=== PATIENT | male | born 1950 | race Caucasian/White ===

== ENCOUNTER → 2025-05-10 09:18 | Outpatient (REF) | payer MEDICARE, OTHER, SELFPAY | LOC: RAD 09:18 | PROVIDERS: ATTENDING PHYSICIAN Thoracic Surgery (Cardiothoracic Vascular Surgery); FAMILY PHYSICIAN Family Medicine | DX: I35.0 Nonrheumatic aortic (valve) stenosis (principal) | CPT/HCPCS: 74174; 75572; Q9967 ==

== ENCOUNTER 2025-05-17 07:30 | Day surgery (SDC) | payer MEDICARE, OTHER, SELFPAY ==
[2025-05-17] VITALS (16 sets, daily range): BP systolic 111–171; BP diastolic 58–84; BMI 34.7
[2025-05-17] MEDS: NSS 310 ML IV (08:26)
--- NOTE | 2025-05-17 13:18 | ITS.CL.CATH ---
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
Cardiac Catheterization
Procedure Report:
LEFT HEART CATHETERIZATION
Date of Procedure: May 17, 2025
Referring: Dr. Nicholas Townsend
PROCEDURES:
1. Left heart catheterization, coronary angiogram.
2. Moderate sedation.
3. Functional physiologic testing with IFR of mid LAD.
INDICATION: Severe symptomatic aortic stenosis, being worked up for TAVR versus SAVR
ACCESS: Right radial artery, 6Fr. sheath, under US guidance.
HEMODYNAMICS : (mmHg)
AO (s/d) : 151/78
LVEDP : 26
Severe aortic stenosis with mean invasive gradient of 75 mmHg.
CORONARY FINDINGS
Dominance: Right
Left Main Trunk (LMT): Medium caliber vessel which gives rise to a medium caliber LAD and a small caliber left circumflex. There is minimal luminal irregularities.
Left Anterior Descending Artery (LAD): Large caliber vessel that gives off 2 major diagonal branches as it courses along the anterior inter-ventricular groove before wrapping around the cardiac apex. Mid LAD at the level of the takeoff of a medium
to large caliber second diagonal branch, there is an eccentric calcified 60% stenosis which is IFR positive at 0.88.
Left Circumflex Artery (LCx): Small caliber vessel that gives off 1 major obtuse marginal (OM) branches as it courses along the atrio-ventricular (AV) groove. There is mild diffuse atherosclerotic plaque.
Right Coronary Artery (RCA): Large caliber dominant vessel that gives rise to the posterior descending artery (RPDA) and postero-lateral ventricular (RPLV) branches distally. There is mild diffuse atherosclerotic plaque.
HEMODYNAMIC ASSESSMENT OF THE MID LAD WITH A [place] OMNI WIRE: The origin of the left coronary artery was cannulated with a 6 [place] EBU 3.5 guide catheter. Intravenous heparin was administered and the ACT was followed during the procedure. Two
hundred micrograms of intracoronary nitroglycerin was given through the guide catheter. A [place] Omni wire was advanced to the guide catheter tip and normalized just outside the guide catheter. The Omni wire was then carefully manipulated across
the stenosis in the mid LAD with the iFR below the ischemic threshold measuring 0.88. The Omni wire was then pulled back to the guide catheter where the Pd/Pa measured 1.0 confirming no baseline drift in pressure readings.
SEDATION: 42 minutes of procedural sedation was utilized. IV Midazolam and IV Fentanyl were administered. An independent medical support assistant was present to assist with and help manage the patient's level of consciousness and physiologic status.
RADIATION SUMMARY: Fluoro Time (min): 8.5, Dose (mGy): 649.3, DAP (Gy.cm2) : 42.37
Closure Device: There were no immediate intra-procedural complications. The sheath was pulled in the photonic laboratory technician and a vascular-band applied to the right wrist for radial artery hemostasis using the patent hemostasis technique.
CONCLUSIONS
1. Mid LAD at the level of the takeoff of a medium to large caliber second diagonal branch, there is an eccentric calcified 60% stenosis which is IFR positive at 0.88.
2. LVEDP of 26 mmHg.
3. Severe aortic stenosis with mean invasive gradient of 75 mmHg.
RECOMMENDATIONS
1. Wean radial band per protocol. Monitor right hand perfusion and for bleeding from the radial site following removal of the vascular-band following trans-radial access.
2. Continue aggressive medical therapy and risk factor modification for secondary CAD prevention.
3. Hydrate with normal saline to mitigate the risk of contrast-induced acute kidney injury.
4. Discussed at structural heart meeting regarding TAVR plus PCI versus SAVR plus CABG versus AVR alone and medical therapy for now for CAD.
Brenda Hansen MD, [facility], [facility]
Copy to: Dr. Nicholas Townsend
== END 2025-05-17 15:25 | disposition home or self-care (01) ==
LOC: CATH 07:30
PROVIDERS: ATTENDING PHYSICIAN Internal Medicine Interventional Cardiology; FAMILY PHYSICIAN Family Medicine; OTHER PHYSICIAN Internal Medicine Cardiovascular Disease
DX: I35.0 Nonrheumatic aortic (valve) stenosis (principal); I25.10 Atherosclerotic heart disease of native coronary artery without angina pectoris; I10 Essential (primary) hypertension; E78.2 Mixed hyperlipidemia
CPT/HCPCS: 99152; 99153; 93799; 85347; 93458; C1769; C1894; Q9967

== ENCOUNTER 2025-06-12 04:59 | Inpatient (IN) | payer MEDICARE, OTHER, SELFPAY ==
[2025-06-03 08:08] VITALS: BMI 34.2
[2025-06-03 09:12] LABS: Hematocrit 43.8 % (39.0-52.0); Hemoglobin 14.8 g/dL (13.0-18.0); Mean Corp Hgb Conc. 33.8 g/dL (33.0-37.0); Mean Corpuscular Volume 98.0 fL (80.0-94.0); Nucleated Red Blood Cells % 0 % (-); Platelet Count 177 10^3/uL (130-400); Red Cell Dist. Width 12.2 % (11.5-14.5)
[2025-06-03 09:17] LABS: INR 1.02; PT 13.7 Sec (11.4-14.6)
[2025-06-03 09:25] LABS: ALT (SGPT) 45 U/L (0-50); AST (SGOT) 31 U/L (17-59); Albumin 4.1 g/dl (3.5-5.0); Alkaline Phosphatase 65 U/L (38-126); Blood Urea Nitrogen 18 mg/dl (9-20); Calcium 9.4 mg/dl (8.4-10.2); Carbon Dioxide 29 mmol/L (22-30); Chloride 104 mmol/L (98-107); Estimated Creatinine Clearance 95 ml/min; Glucose 83 mg/dl (70-99); Potassium 4.5 mmol/L (3.5-5.1); Sodium 139 mmol/L (135-145); Total Protein 6.8 g/dl (6.3-8.2); eGFR > 60.00
[2025-06-03 09:39] LABS: Urine Character Clear (Clear)
--- NOTE | 2025-06-03 10:45 | CM ---
Spoke with patient and in PATs. We discussed pre-op AVR teaching including sternal and driving restrictions. Previously independent at baseline, lives with in 1 story home with 2 steps to enter, denies DMEs. He has the CT surgery education
book, soap, and instructions. He is agreeable to a follow up visit from the CT transitional care nurses following DC. CM role explained and all questions answered. Plan for AVR 06/12/25.
[2025-06-03 11:37] LABS: Glycohemoglobin (HgbA1c) 4.7 % (4.0-5.9)
[2025-06-12] VITALS (34 sets, daily range): BP systolic 80–151; BP diastolic 46–123; BMI 34.0
[2025-06-12] MEDS: PROTONIX 40 MG PO (05:35)
[2025-06-12] MEDS: MAGNESIUM OXIDE 400 MG PO (05:35)
[2025-06-12] MEDS: BACTROBAN 2% OINTMENT 1 APPLIC NASAL ×2 (05:36→20:54)
[2025-06-12] MEDS: LOPRESSOR 25 MG PO (05:36)
--- NOTE | 2025-06-12 05:55 | PTCARENOTE ---
Patient admitted to CVICU. Patient confirmed 2 CHG showers and home medication list. Patient washed w/ CHG cloths and clipped. Admission questions asked. Medications administered. Labs drawn. Awaiting CVOR.
[2025-06-12 06:16] LABS: Hematocrit 40.3 % (39.0-52.0); Hemoglobin 13.2 g/dL (13.0-18.0); Mean Corp Hgb Conc. 32.8 g/dL (33.0-37.0); Mean Corpuscular Volume 100.5 fL (80.0-94.0); Platelet Count 158 10^3/uL (130-400); Red Cell Dist. Width 12.4 % (11.5-14.5)
--- NOTE | 2025-06-12 06:20 | W.CVOR.SURPR ---
CVOR Surgeon Immed Pre Op
-
I have examined this patient prior to performance of the scheduled procedure.
The patient's condition is unchanged from the time of the dictated/written History and
Physical and the patient is able to undergo the scheduled procedure.
AVR, we collectively discussed his CAD and consensus is to leave that mid lesion alone (he also denies any anginal symptoms)
[2025-06-12 07:53] LABS: ACT+ - POC 115 Seconds (82-134)
[2025-06-12 08:17] LABS: Urine Character Clear (Clear)
--- NOTE | 2025-06-12 08:17 | CM ---
Reviewed chart. Mr Goins is in the operating room today. Prior to admission he resides with his spouse in a one story home with two steps to enter. Prior to admission he was independent with ambulation and adls. He does not have any DME. He has a
prescription plan. Medical work-up in progress. The discharge plan is to return home with his spouse and a home visit by the Transitional Care Nurse when medically stable.
[2025-06-12 08:33] LABS: Urine Squamous Cell 0-2 /LPF (Few); Urine White Cell 0-2 /HPF (0-5)
[2025-06-12 08:34] LABS: Urine Red Blood Cell 0-2 /HPF (0-2)
[2025-06-12 08:51] LABS: ACT+ - POC 528 Seconds (82-134)
[2025-06-12 09:14] LABS: B.E. - POC -2.7 mmol/L; Glucose - POC 93 mg/dl (70-99); HCO3 - POC 24 mmol/L (21-28); Hematocrit - POC 31 % PCV (42-52); Hemodilution- POC No; Hemoglobin Calculated - POC 10.6; Ionized Calcium - POC 1.18 mmol/L (1.15-1.33); Lactate - POC 0.41 mmol/L (0.36-0.75); O2 Saturation %Calculated-POC 98.7 % (94-98); PCO2 - POC 46 mmHg (35-48); PO2 - POC 130 mmHg (83-108); Potassium - POC 3.6 mmol/L (3.5-5.1); Sodium - POC 139 mmol/L (136-145); Specimen Type - POC Arterial; pH - POC 7.32 (7.35-7.45)
[2025-06-12 09:26] LABS: ACT+ - POC 641 Seconds (82-134)
[2025-06-12 09:47] LABS: B.E. - POC -0.3 mmol/L; Glucose - POC 111 mg/dl (70-99); HCO3 - POC 25 mmol/L (21-28); Hematocrit - POC 32 % PCV (42-52); Hemodilution- POC Yes; Hemoglobin Calculated - POC 10.8; Ionized Calcium - POC 1.06 mmol/L (1.15-1.33); Lactate - POC 0.42 mmol/L (0.36-0.75); O2 Saturation %Calculated-POC 99.9 % (94-98); PCO2 - POC 43 mmHg (35-48); PO2 - POC 321 mmHg (83-108); Potassium - POC 5.1 mmol/L (3.5-5.1); Sodium - POC 141 mmol/L (136-145); Specimen Type - POC Arterial; pH - POC 7.38 (7.35-7.45)
[2025-06-12 09:57] LABS: ACT+ - POC 530 Seconds (82-134)
[2025-06-12 10:30] LABS: B.E. - POC 0.9 mmol/L; Glucose - POC 154 mg/dl (70-99); HCO3 - POC 26 mmol/L (21-28); Hematocrit - POC 33 % PCV (42-52); Hemodilution- POC Yes; Hemoglobin Calculated - POC 11.1; Ionized Calcium - POC 1.16 mmol/L (1.15-1.33); Lactate - POC 0.68 mmol/L (0.36-0.75); O2 Saturation %Calculated-POC 99.8 % (94-98); PCO2 - POC 45 mmHg (35-48); PO2 - POC 231 mmHg (83-108); Potassium - POC 4.5 mmol/L (3.5-5.1); Sodium - POC 142 mmol/L (136-145); Specimen Type - POC Arterial; pH - POC 7.38 (7.35-7.45)
[2025-06-12 10:32] LABS: ACT+ - POC 123 Seconds (82-134)
--- NOTE | 2025-06-12 11:02 | CON.INTV ---
Consultation
Consultation Request
Date/Time Consultation Requested: 06/12/2025 - 1035
Date/Time Consultation Performed: 06/12/2025 - 1054
Requesting Provider: Yoanna Tejada PA-C
Performing Provider: Dr. Delgado
Reason for Consultation: SAVR
Medical History
-
Chief Complaint: Elective SAVR
History of Present Illness:
74-year-old male with a past medical history of nonrheumatic aortic valve stenosis who presents for elective surgical aortic valve replacement. Patient known to the CT surgery service with last visit on 05/27/[address] Howe. He has known mid
LAD disease with an IFR of 0.88. Multidisciplinary team discussion held and there was discussion between TAVR versus SAVR. He does have significant calcium burden that infiltrates up into the measures and into the valve annulus which places him at
slightly higher risk for complications including aortic rupture and hemorrhage. Discussion held and due to this calcium distribution, surgery would actually be more controlled and safer compared to TAVR. Patient agreed to this procedure, and today
underwent hemisternotomy with surgical aortic valve replacement with a 27 mm biological valve. There were no complications and he was transferred to the CVICU postoperatively for further care, with Lan Support Specialist service consulted for additional
management/recommendations.
When I saw the patient he was in bed, intubated on SIMV at 16/550/40%/5, with PIP 21 cmH2O, breathing at 16 breaths/min and VTe 415 cc. Currently on Levophed at 3 mcg/min and insulin drip at 1.3 units/hr. Heart rate 68, BP via A-line 93/50, PAP
25/12, CO/CI: 4.8/2.23, respectively, BP via NIBP: 112/75 and saturating 98%. He has a mediastinal chest tube x 1.
PMHx: Severe aortic stenosis, BPH, hypercholesterolemia, hypertension, CAD (mid-LAD)
PSHx: Non-contributory
Past Medical History
Past Medical History: Other (Above as per HPI)
Past Surgical History: Other (Above as per HPI)
Social History
Tobacco: Non-smoker
Alcohol: Occasional
Drug: None
Personal:
Living: With Family
Family History
Family History: CAD (Father + maternal grandmother), Cancer (Sibling (unknown type)), Hypertension (Father and mother) and Other (Father: CHF + aortic aneurysm; mother: History of syncope + hypercholesterolemia)
Allergies / Home Medications
Allergies
Allergy/AdvReac Type Severity Reaction Status Date / Time
No Known Allergies Allergy Verified 05/30/25 15:28
Home Medications
�Medication �Instructions �Recorded �Confirmed �Last Taken �Type
ascorbic acid (vitamin C) 1,000 mg 1,000 mg PO DAILY Supplement 05/17/25 06/12/25 06/04/25 08:00 History
tablet (Vitamin C)
aspirin 81 mg chewable tablet 81 mg PO DAILY Blood Clot 05/17/25 06/12/25 06/11/25 08:00 History
Prevention/Tx
cholecalciferol (vitamin D3) 25 25 mcg PO DAILY Supplement 05/17/25 06/12/25 06/05/25 08:00 History
mcg (1,000 unit) tablet (Vitamin
D3)
clobetasol 0.05 % topical gel 1 applic topical MOWEFR 05/17/25 06/12/25 06/11/25 08:00 History
Tounge,cheek
clotrimazole 10 mg bernard 10 mg mucous membrane MOWEFR 05/17/25 06/12/25 06/11/25 08:00 History
Infection
cyanocobalamin (vitamin B-12) 1,000 mcg PO DAILY Supplement 05/17/25 06/12/25 06/04/25 08:00 History
1,000 mcg tablet (Vitamin B-12)
echinacea 400 mg capsule 400 mg PO HS Supplement 05/17/25 06/12/25 06/04/25 08:00 History
tamsulosin 0.4 mg capsule 0.4 mg PO DAILY BPH 05/17/25 06/12/25 06/11/25 08:00 History
amlodipine 5 mg tablet 5 mg PO HS Blood Pressure 05/31/25 06/12/25 06/09/25 20:00 History
multivitamin 1 tab PO DAILY Supplement 05/31/25 06/12/25 06/05/25 08:00 History
omega 9-pmd-zsi-fish oil 1,200 mg 1 cap PO BID High Cholesterol 05/31/25 06/12/25 06/04/25 08:00 History
(144 mg-216 mg) capsule (Fish Oil)
turmeric 500 mg PO HS Supplement 05/31/25 06/12/25 06/04/25 08:00 History
zinc acetate 50 mg (zinc) capsule 50 mg PO HS Supplement 05/31/25 06/12/25 06/04/25 08:00 History
atorvastatin 40 mg tablet 40 mg PO QPM High Cholesterol 06/12/25 06/12/25 06/11/25 19:00 History
Review of Systems
-
Unable to Obtain full review of systems at this time due to: Patient Intubation
Vitals / Labs / Diagnostic Testing
Vital Signs
Temp Pulse Resp BP Pulse Ox
96.4 F L 79 13 144/76 96
06/12/25 11:15 06/12/25 11:30 06/12/25 11:25 06/12/25 05:36 06/12/25 11:30
Diagnostic Testing:
Physical Exam
-
HEENT: Normocephalic, Anicteric and Other (ETT in place)
Cardiovascular: S1/S2 and Peripheral Edema (negative)
Respiratory: Wheeze (negative), Rhonchi (negative), Non-Labored Respirations, Other (Mechanical breath sounds heard bilaterally) and Other (Mediastinal chest tube x 1)
GI: Soft, Distended (Abdominal obesity), Non Tender and Normal Bowel Sounds
Neurology: Tremors (negative) and Other (Sedated)
Skin: Warm and Dry
General: Respiratory Distress (negative), Comfortable, Fever (negative) and Chills (negative)
Assessment
-
Assessment: 74-year-old male with a past medical history of nonrheumatic aortic valve stenosis who presents for elective surgical aortic valve replacement. Patient known to the CT surgery service with last visit on 05/27/[address] Howe. He
has known mid LAD disease with an IFR of 0.88. Multidisciplinary team discussion held and there was discussion between TAVR versus SAVR. He does have significant calcium burden that infiltrates up into the measures and into the valve annulus which
places him at slightly higher risk for complications including aortic rupture and hemorrhage. Discussion held and due to this calcium distribution, surgery would actually be more controlled and safer compared to TAVR. Patient agreed to this
procedure, and on 06/12/2025 he underwent hemisternotomy with surgical aortic valve replacement with a 27 mm biological valve. There were no complications and he was transferred to the CVICU postoperatively for further care, with Lan Support Specialist
service consulted for additional management/recommendations.
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
Impression:
#Aortic valve stenosis with heavy calcification s/p hemisternotomy and surgical aortic valve replacement with 27 mm biological valve (POD #0)
#CAD involving mid LAD with an eccentric calcified 60% stenotic lesion which is IFR positive at 0.88 per [facility] on 05/17/2025)
#Hypertension
#Hyperlipidemia
#BPH
#Obesity (BMI: 34)
#Single-vessel CAD
Plan:
Ventilator settings reviewed
FiO2 will be weaned to maintain SpO2 >90-94%
Minute ventilation will be adjusted
Arterial blood gases will be monitored
Spontaneous breathing trial will be attempted with hopeful extubation after anesthesia/sedation wear off
prn nebulized bronchodilators - not currently bronchospastic
Pulmonary artery catheter parameters will be followed
Pressors/antihypertensive/inotropes/diuretics will be provided as needed
Maintain MAP>65
Replete electrolytes with K>4, Mg>2
Monitor chest tube output
Monitor hemoglobin
Monitor platelet count and coags
Transfuse blood products as needed to maintain Hb>7g/dL, plt>50k (given post-operative status)
CT surgery managing chest tubes
Monitor blood sugar to maintain euglycemia with goal BG 110-140
Insulin drip per protocol
Aspiration precautions
VAP prevention protocol
DVT prophylaxis
Early nutrition
Early mobilization
Critical care statement: A total of 46 minutes of critical care time was provided for this patient today. This includes management of ventilator, spontaneous breathing trial, arterial blood gases, pressors, of unstable vital signs, evaluation of the
patient at bedside, reviewing the patient's pertinent medical records including radiographs, microbiology, laboratory evaluations, and discussion with primary team and critical care nursing.
Data:
Intraoperative INGRID 06/12/2025:
Overall LVEF is approximately 55% with no RWMA.
Severe concentric left ventricular hypertrophy.
Stage II Diastolic dysfunction.
Mildly dilated left atrium.
Mild tricuspid regurgitation.
Severe aortic stenosis.
Mild aortic insufficiency.
KEENA calculates to 0.8 cm2 by continuity equation.
Moderate posterior MV annular calcification.
Mid ascending aorta is mildly dilated measuring 3.6 cm at the level of the RPA.
Mild sessile atheroma seen in the descending aorta and distal arch.
Left heart catheterization 05/17/2025:
1. Mid LAD at the level of the takeoff of a medium to large caliber second diagonal branch, there is an eccentric calcified 60% stenosis which is IFR positive at 0.88.
2. LVEDP of 26 mmHg.
3. Severe aortic stenosis with mean invasive gradient of 75 mmHg.
[2025-06-12 11:07] LABS: B.E. - POC -1.1 mmol/L; Glucose - POC 180 mg/dl (70-99); HCO3 - POC 24 mmol/L (21-28); Hematocrit - POC 32 % PCV (42-52); Hemodilution- POC Yes; Hemoglobin Calculated - POC 11.0; Ionized Calcium - POC 1.35 mmol/L (1.15-1.33); Lactate - POC 1.08 mmol/L (0.36-0.75); O2 Saturation %Calculated-POC 93.2 % (94-98); PCO2 - POC 40 mmHg (35-48); PO2 - POC 69 mmHg (83-108); Potassium - POC 4.1 mmol/L (3.5-5.1); Sodium - POC 138 mmol/L (136-145); Specimen Type - POC Arterial; pH - POC 7.39 (7.35-7.45)
[2025-06-12 11:25] LABS: Glucose - Point of Care 143 mg/dl (70-99)
--- NOTE | 2025-06-12 11:31 | W.PN.CT.SURG ---
CT Surgery Operative Note
-
CARDIAC SURGERY OPERATIVE REPORT
Preoperative Diagnosis: Aortic valve stenosis with heavy calcification
Postoperative Diagnosis: Same
Procedure(s) Performed:
1. Brennen sternotomy to the right at the third intercostal space
2. Peripheral venous cannulation and central aortic cannulation
3. Surgical aortic valve replacement [27 mm biological valve]
4. Placement temper ventricular pacing wires
5. Transesophageal echocardiography
Date of Surgery: 06/12/2025
Comorbidities:
1. Severe aortic valve stenosis, symptomatic
2. Hypertension
3. Hyperlipidemia
4. BPH
5. Single-vessel coronary artery disease
Attending Surgeon: Jono Hoew MD, MS
Scrub and Circulating RNs: Olimpia Barriga, GARRICK, Filipe Santiago RN
Assistants: Evelyn Powers MD (PGY 2 Cardiac Surgery Resident, did portions of the annular sutures) and Ivy Ward PA-C (present for suture management, exposure, retraction, and wound closure)
Anesthesiology: Timothy Krishnan MD and Bereket Dodson CRNA
Gameplay Engineer: Regine Lord CCP
Anesthesia: GETA
EBL: per perfusion records
Products: None
CPB Time: 84 minutes
Aortic Cross Clamp Time: 66 minutes
Indication(s) for Procedures: This is a 74-year-old male who was initially referred for transcatheter aortic valve replacement. However on his CT scan he demonstrated significant calcification of the aortic valve with extension into the annulus and
the commissures. There was concern here for possible significant paravalvular leak or potential rupture/bleeding and so he was referred back to surgery for consideration of replacement. He was counseled about surgical radiographic placement and
opted to move forward. We also discussed any intervention to his LAD, which had mild disease at the midportion and he denied any anginal symptoms and so the group consensus was to leave this alone.
Aortic Valve Description: Trileaflet aortic valve, heavy calcification with large boulders towards the right coronary cusp at the annulus with extension down towards the muscular septum as well as significant calcification at the commissure of the
left right interface. Left and right coronary ostia normal anatomic positions.
Findings: His left ventricular ejection fraction preoperatively was normal at 65% with no significant regional wall motion abnormalities. Following surgery his EF remained the same at 65% with no new regional wall motion abnormalities his aortic
valve was heavily calcified as described above there were large centimeter size boulders towards the annular insertion point with extension down towards the muscular septum. There is also significant calcification at the left right commissure.
After extensive debridement, a surgical attic valve was replaced with a total of 15 nonpledgeted 2 Ethibond sutures placed circumferentially from LVOT through annulus through sewing cuff of the surgical aortic valve. The 27 mm bioprosthesis was
then parachuted into place and secured with core knots. At inclusion of the case there was no paravalvular leak, the mean gradient across the valve was 2 mmHg. There is normal excursion of all 3 leaflets on the new prosthesis. His cardiac index
was over 2, not requiring inotropic support, he did not require any blood products and was in his [place] sinus rhythm although bradycardic at the inclusion the case.
Specimen(s): Aortic valve leaflets.
Prosthesis: 27 mm [employer] Inspira's Resilia aortic valve, serial #[id number].
Description of Procedure: The patient was taken to the operating room. Their identity and procedure to be performed were verified and they were positioned supine on the operating table. Induction via general anesthesia with endotracheal intubation
was performed and central venous access and arterial monitoring were inserted. A preoperative transesophageal echocardiogram was performed to assess cardiac function and valvular function. The patient was then prepped and draped from chin to feet in
a sterile fashion. A preoperative time-out was performed with all members of the team present. Ultrasound was used to perform Seldinger access to the right common femoral vein with placement of a J-wire in the SVC under INGRID guidance. A upper
midline chest incision was performed along with brennen sternotomy. The innominate vein was isolated. Full heparinization was given (a total of 40,000 units). We created a pericardial well. The aortic cannulation site was chosen where it was soft,
pliable, and free of calcium. Venous cannulation was done under INGRID guidance. The arterial cannula was inserted in the ascending aorta using a Seldinger technique and a 20F EOPA cannula with serial dilations. The arterial cannula line had an
appropriate bounce and correlating pressures with test dosing. Next, a root vent/antegrade cannula was inserted into the ascending aorta. The ACT was confirmed to be over 400 and retrograde autologous priming was performed before commencing
cardiopulmonary bypass. The pulmonary artery was away from the aorta to facilitate a clamp site and aortotomy. A pulmonary vent was placed in the main PA and secured. The aortic cross-clamp was applied after decreasing the flow on the
bypass and mean arterial pressure. A total of 1.2L initial dose of antegrade Del-Nido cardioplegia solution was given and planned for re-dosing every 75 minutes as necessary. There was rapid electro-mechanical arrest of the heart at 400 cc of
cardioplegia. The left ventricle was observed for distention on echocardiogram and manual palpation. Cold slush was placed into the pericardial well and cooled to 34 degrees centigrade.
Carbon dioxide was used to flood the field. We manually identified the location of the right coronary take off. An aortotomy was made approximately 2cm above the sinotubular junction. The location of both left and right coronary vessels were
visualized in the root.The leaflets were excised and sent for pathological assessment. The annulus was debrided of any calcium being mindful of the annulus and membranous septum. The root and left ventricular outflow tract were thoroughly irrigated
to remove any debris. A total of 15 non-pledgeted 2-0 ethibond annular sutures were placed [id number] circumferentially. These were brought through the sewing cuff of the prosthetic valve which as then parachuted into place. The left and right
coronary ostia were visualized and were unobstructed by the valve. A Cor-Knot device was used to secure the annular sutures. The valve was inspected and was well seated. The aortotomy was approximated with 4-0 prolene in two layers. De-airing
maneuvers were performed and temporary bipolar ventricular pacing wires were placed on the base of the right ventricle. The patient was placed in a Trendelenburg position and flows on bypass were lowered. The aortic cross clamp was removed and flows
were slowly brought back up. The aortotomy appeared hemostatic. Transesophageal echocardiography revealed no paravalvular leak and appropriate prosthetic function. Once de-airing was satisfactory, the PA and root vents were removed. After verifying
acceptable parameters, we initiated weaning from cardiopulmonary bypass. Once we were off cardiopulmonary bypass, the venous cannula was clamped and removed. A test dose of protamine was administered and the patient was monitored for any adverse
reaction before resuming protamine. Once half of the protamine dose was delivered, pump suckers were turned off and the systolic blood pressure was lowered for aortic decannulation. The aortic cannula was removed and pursestrings were tied down. All
cannulation sites were oversewn with a 4-0 prolene. The aortotomy suture line was inspected and hemostasis was confirmed. Mediastinal hemostasis was obtained. One 19Fr [place] drain was placed within the pericardium. The sternum was approximated with
2 #7 single and 2 #6 double stainless steel wires. Fascia was approximated with #1 vicryl suture. The subcutaneous, dermis and epidermis were closed in layers in a running fashion. The femoral venous access site was closed with a large buttressed
pursestring. The skin wound was cleansed and dressed.
All instrument, sponge, and needle counts were confirmed to be correct x 2 at the end of the operation. The patient was transferred to the cardiac intensive care unit in critical but stable condition.
I, Dr. Jono Howe, was present, scrubbed for, and performed all critical elements of this procedure.
Jono Howe MD, MS
Cardiothoracic Surgeon
[facility]
This operative dictation was created using the [employer] dictation system. Please excuse any grammatical, typographical, or 'sound alike' errors
[2025-06-12 11:35] LABS: B.E. -1.9 mmol/L; HCO3 24.7 mmol/L (21-28); O2 Saturation % 96.6 % (94-98); PCO2 48 mmHg (35-48); PO2 80 mmHg (83-108); Potassium 4.2 mMOL/L (3.5-5.1); Sodium 137 mMOL/L (136-145)
[2025-06-12 11:40] LABS: Hematocrit 40.3 % (39.0-52.0); Hemoglobin 13.2 g/dL (13.0-18.0); Platelet Count 121 10^3/uL (130-400)
[2025-06-12 11:48] LABS: INR 1.25; PT 16.2 Sec (11.4-14.6)
[2025-06-12 11:49] LABS: APTT 30.5 Sec (23.4-35.0)
[2025-06-12] MEDS: NSS 500 IV (11:55)
[2025-06-12] MEDS: FLOMAX PO (11:56)
[2025-06-12] MEDS: ANCEF 10 IV ×2 (11:56)
[2025-06-12] MEDS: NEURONTIN PO ×2 (11:56→15:49)
--- NOTE | 2025-06-12 12:00 | PTCARENOTE ---
pt received from CVOR @~1115, sedated on Precedex gtt, RASS -5. core temp 96.4F, bear hugger applied as ordered. SR on the monitor, HR 60s. V wire in place, VVI 30/20. SBP goal per Dr. Howe 90-110, Levophed gtt titrated as ordered. PAP 20s/10s. CVP
~7. CI 2.16. palpable pulses, no edema. pt mechanically ventilated, ETT #8.0, 23cm@lip. SIMV 12 TV 550, PEEP 5, FIO2 40%. 95% POX. lungs clear anteriorly. CTx1, no air leak or crepitus noted. pt abdomen s/n, hypoactive BS. Mann in place, clear
yellow urine. sternal incision SANDER SETTER, approximated. chest tube site c/d/i. R groin dressing intact. RIJ cordis/swan maintained. L radial [place] flushed, zeroed, and calibrated. PIV. insulin gtt running as ordered. lab work drawn, EKG performed, CXR
completed. see worklist for VS, I&O, and assessment.
[2025-06-12 12:01] LABS: Blood Urea Nitrogen 23 mg/dl (9-20); Magnesium 2.6 mg/dl (1.6-2.3)
[2025-06-12 12:12] LABS: Estimated Creatinine Clearance 108 ml/min; Glucose 146 mg/dl (70-99)
[2025-06-12 12:13] LABS: Glucose - Point of Care 156 mg/dl (70-99)
[2025-06-12] MEDS: LR 250 ML IV ×4 (12:15→23:32)
[2025-06-12] MEDS: VITAMIN D3 (cholecalciferol) PO (12:23)
[2025-06-12] MEDS: THERAGRAN PO (12:23)
[2025-06-12] MEDS: MYCELEX TROCHE S (12:23)
[2025-06-12 12:58] LABS: Glucose - Point of Care 134 mg/dl (70-99)
--- NOTE | 2025-06-12 13:02 | W.PN.CARDCBS ---
Addendum entered and electronically signed by Liam Carroll MD 06/12/25 14:29:
I saw and examined the patient.
The Lumber Press Operator's note was reviewed and I agree with the note.
Comment:
GEN: No distress, awake, Ox3
HEENT: supple, anicteric, mmm
LUNGS: CTA, no wheezes/rales
CV: Reg, S1/S2, no rub
ABD: soft, BS+, NT/ND
EXT: No edema
NEURO: Gross non-focal
SKIN: No rash
Plan:
Overall doing well status post AVR.
Continue medical therapy for LAD.
On low-dose Levophed. Continue to wean.
Creatinine is 0.7, hemoglobin 14.2
Remains in sinus rhythm. Continue amiodarone.
Original Note:
Today's Communication / Plan
-
continue post op care
follow rhythm, in sinus
Impression / Plan
-
Primary Metal Window Frame Maker: Dr. Townsend
Assessment:
Severe symptomatic status post 27 mm biological AVR via Brennen sternotomy at third intercostal space 06/12/25
Mid LAD stenosis, iFR positive at 0.88, medically managed
PVCs
Hypertension
Hyperlipidemia
BPH
Lichen planus
Plan:
-status post 27 mm biological AVR via Brennen sternotomy at third intercostal space 06/12/25
-on levo@1, wean as able. CI 1.93
-with some PVCs at times in pattern of bigeminy
-hgb 13.2. continue asa
-receiving LR
-EKG SR with NSSTS. he does have known mid LAD disease, iFR positive, however multidisciplinary discussion resulted in plan for medical mgmt at this time
-continue post op care
-prior to admission was on norvasc 5mg HS
-d/w nursing
Progress Note - Metal Window Frame Maker
Subjective
Date of Service: June 12, 2025
intubated, sedated
Objective
Labs:
06/12/25 11:23
Labs
Hgb Cancelled 06/12/25 15:00
Hct Cancelled 06/12/25 15:00
Plt Count Cancelled 06/12/25 15:00
PT 16.2 Sec (11.4-14.6) H 06/12/25 11:23
INR 1.25 06/12/25 11:23
APTT 30.5 Sec (23.4-35.0) 06/12/25 11:23
Sodium 139 mmol/L (135-145) 06/03/25 08:46
Potassium 4.5 mmol/L (3.5-5.1) 06/03/25 08:46
BUN 23 mg/dl (9-20) H 06/12/25 11:23
Creatinine 0.7 mg/dL (0.7-1.3) 06/12/25 11:23
Glucose 146 mg/dl (70-99) H 06/12/25 11:23
Vital Signs and I&O:
Vital Signs
Temp Pulse Resp BP Pulse Ox
97.1 F 67 16 101/64 98
06/12/25 13:00 06/12/25 12:55 06/12/25 13:00 06/12/25 12:18 06/12/25 13:00
Vital Signs
Temp Pulse Resp BP Pulse Ox
97.1 F 67 16 101/64 98
06/12/25 13:00 06/12/25 12:55 06/12/25 13:00 06/12/25 12:18 06/12/25 13:00
Intake & Output
06/10/25 06/11/25 06/12/25 06/13/25
07:59 07:59 07:59 07:59
Intake Total 476.0 / 476.0
Output Total 165 / 165
Balance 311.0 / 311.0
Physical Exam
Physical Exam
GEN: No distress, intubated, sedated. on nava hugger
HEENT: supple, mmm
LUNGS: CTA B/L, no wheezes/rales
CV: Reg, S1/S2, no murmur
EXT: No cyanosis, clubbing, edema
NEURO: sedated
SKIN: Warm, pink, dry. No rash. Hemisternotomy incision c/d/i.
[2025-06-12] MEDS: ZOFRAN 4 MG IV (14:01)
[2025-06-12 14:10] LABS: Glucose - Point of Care 103 mg/dl (70-99)
[2025-06-12] MEDS: DILAUDID 0.25 MG IV ×2 (14:10→23:00)
[2025-06-12] MEDS: TYLENOL PO (14:11)
--- NOTE | 2025-06-12 14:12 | PTCARENOTE ---
500ml LR given, PORTER SAMPLE CASE aware. pt nods appropriately, SCOTT. follows commands. pt gagging on ETT, nodded head yes to nausea. PRN Zofran given as ordered. suctioned for small amount of clear thin secretions. attempted CPAP trial but pt had periods of apnea,
placed back on SIMV settings. pt nodded head yes to pain, received PRN Dilaudid 0.25mg IVP.
[2025-06-12 15:06] LABS: Glucose - Point of Care 108 mg/dl (70-99)
[2025-06-12] MEDS: OFIRMEV 100 IV (15:11)
[2025-06-12] MEDS: PACERONE PO ×2 (15:49→22:42)
--- NOTE | 2025-06-12 15:50 | PTCARENOTE ---
SECURITY SHIFT SUPERVISOR aware of sinus arrhythmia w/ labile BP, LR bolus given. attempted CPAP trial, frequent periods of apnea, wakes to voice, pt nods head yes to still drowsy. ABG and H&H sent, pt placed back on SIMV 40% FIO2. POX 100%.
[2025-06-12 15:53] LABS: B.E. -0.3 mmol/L; HCO3 22.1 mmol/L (21-28); O2 Saturation % 99.2 % (94-98); PCO2 29 mmHg (35-48); PO2 105 mmHg (83-108); Potassium 3.9 mMOL/L (3.5-5.1)
[2025-06-12 15:58] LABS: Hematocrit 37.7 % (39.0-52.0); Hemoglobin 12.8 g/dL (13.0-18.0); Platelet Count 118 10^3/uL (130-400)
[2025-06-12] MEDS: KCL 50 IV (16:01)
[2025-06-12 16:06] LABS: Glucose - Point of Care 88 mg/dl (70-99)
[2025-06-12 16:41] LABS: B.E. -0.9 mmol/L; HCO3 20.4 mmol/L (21-28); O2 Saturation % 99.4 % (94-98); PCO2 25 mmHg (35-48); PO2 102 mmHg (83-108); Potassium 4.2 mMOL/L (3.5-5.1)
[2025-06-12] MEDS: CARDENE 200 IV (16:57)
[2025-06-12] MEDS: LIPITOR PO (17:04)
[2025-06-12] MEDS: ANCEF 5 IV (17:07)
[2025-06-12] MEDS: LOW STRENGTH ASPIRIN 81 MG PO (17:07)
[2025-06-12] MEDS: DILAUDID 0.5 MG IV (17:07)
--- NOTE | 2025-06-12 17:15 | PTCARENOTE ---
pt washed w/ CHG wipes, gown changed, face washed, oral hygiene performed. pt more alert. pt placed on CPAP trial, ABG sent. LEGAL SUPPORT SPECIALIST aware of results, pt extubated @1655 to 6LNC, oriented x4. and daughter updated at bedside. pt c/o sternal pain,
received PRN Dilaudid 0.5mg IVP.
[2025-06-12 18:11] LABS: Glucose - Point of Care 89 mg/dl (70-99)
[2025-06-12 19:47] LABS: B.E. -2.2 mmol/L; HCO3 22.4 mmol/L (21-28); O2 Saturation % 98.1 % (94-98); PCO2 37 mmHg (35-48); PO2 82 mmHg (83-108); Potassium 4.2 mMOL/L (3.5-5.1); Sodium 138 mMOL/L (136-145)
[2025-06-12 19:48] LABS: Glucose - Point of Care 103 mg/dl (70-99)
[2025-06-12] MEDS: NITROGLYCERIN PREMIX 250 IV (20:17)
--- NOTE | 2025-06-12 21:15 | PTCARENOTE ---
Report from GARRICK Andrews. Walking rounds done. Goal SBP 90-110 mm HG. Cardene gtt titrated to 5 mg/hr. ABG result showing pO2 82. Cardene gtt transitioned to NTG gtt per order pA. Cardene gtt titrated off at 2054. NTG gtt currently ay 15 mcg/min.
Current SBP 107-110.
Pt in SR/SA. Audible heart tones, + rub. Mediastinal CT x 1, to -20 cm suction, draining sanguinous drainage. V wire to temp PM. VVI rate 30/mA 20/sens 0.8. CI 2.80. +2 palpable pulses to B radials and DP. See flowsheets for wound assessments and
edema. BBS present. Decreased to B bases. O2 increased to 6L d/t pO2 82. CDB and IS encouraged. IS peak 750 mls. Pt drowsy, arouses to voice. Oriented x 4. Speech clear. equal strength x 4. Belly soft, nontender. Hypoactive bs x 4. Mann draining
clear, yellow urine. Hourly UO. Glycemic protocol followed. at bedside. MICHA Adams at bedside multiple times. Ongoing plan of care.
[2025-06-12 22:35] LABS: Glucose - Point of Care 91 mg/dl (70-99)
[2025-06-12] MEDS: NEURONTIN 100 MG PO (22:41)
[2025-06-12] MEDS: SENOKOT 8.6 MG PO (22:41)
[2025-06-12] MEDS: TYLENOL 975 MG PO (22:42)
--- NOTE | 2025-06-12 23:20 | PTCARENOTE ---
Repeat CI 2.58. SBP 130. Pt c/o 5/10 sternal pain with inspiration. Dilaudid 0.25 mg given IV. NTG gtt increased to 35 mcg/min.
[2025-06-12 23:31] LABS: Glucose - Point of Care 94 mg/dl (70-99)
[2025-06-13] VITALS (32 sets, daily range): BP systolic 91–134; BP diastolic 52–81; PULSE 93; O2SAT 96; BMI 34.0
[2025-06-13 00:34] LABS: Glucose - Point of Care 97 mg/dl (70-99)
--- NOTE | 2025-06-13 00:57 | W.PN.CT ---
Today's Communication / Plan
-
-pod #1
-no significant issues overnight
-sbp 90-110 overnight, liberate sbp 90-130
-CI 2.60, CO 5.60, SVR 871. Drips: Insulin, Nitro 60 in 12/24 hrs
[address] output: med 90/180 in 12/24 hrs
-d/c swan
-d/c insulin
-current meds (Asa, Lipitor, Amio, Lopressor, Gabapentin, Flomax, Feosol, Protonix)
-encourage IS, OOB
Assessment / Plan
-
- Severe symptomatic Aortic valve stenosis with heavy calcification- s/p Brennen sternotomy to the right at the third intercostal space; Surgical aortic valve replacement [27 mm Gardner Inspira's Resilia biological valve] by Dr. Howe on 06/12/25, pod
#1
- Intraop INGRID: LVEF was normal at 65% pre and postop with no significant regional wma. At conclusion of the case, there was no paravalvular leak, the mean gradient across the valve was 2 mmHg.
- Hypertension
- Hyperlipidemia
- BPH
- Single-vessel LAD coronary artery disease, asymptomatic
- Non-smoker
- Acute postop blood loss anemia - no transfusions
- Acute postop thrombocytopenia
- Acute postop atelectasis/ pulmonary insufficiency
- Acute postop hypovolemia with subsequent hypervolemia
- Suspected acute postop pericarditis/rub
Discussed patient care with: Nursing and Care Team
Subjective
-
Date of Service: June 13, 2025
Objective Data
-
PT 16.2 Sec (11.4-14.6) H 06/12/25 11:23
INR 1.25 06/12/25 11:23
APTT 30.5 Sec (23.4-35.0) 06/12/25 11:23
Vital Signs
Vital Signs
Temp Pulse Resp BP Pulse Ox
99.7 F 92 16 97/64 95
06/13/25 00:00 06/13/25 00:35 06/13/25 00:35 06/13/25 00:30 06/13/25 00:35
CT Intake/Output/Weight
06/12/25 06/12/25 06/13/25
06:59 18:59 06:59
Intake Total 1397.7 / 1866.5 468.8 / 1866.5
Output Total 485 / 770 285 / 770
Balance 912.7 / 1096.5 183.8 / 1096.5
SaO2: 95
Physical Exam
-
General: Awake and AOx3
Cardiovascular: Regular rate & rhythm, No Murmurs and Rub
Respiratory: Decreased Breath Sounds
Sternum: Stable
Incision: Clean, Dry and Intact
Extremities: Edema +1 (2+DPs b/l)
Abdomen: soft, nontender, nondistended, + decreased bowel sounds
Data Reviewed
-
Lab Results: Results Reviewed
Medications: Active Meds Reviewed
Chest X-Ray: Report Reviewed and Image Reviewed
ECG: Report Reviewed and Image Reviewed
[2025-06-13 01:25] LABS: Glucose - Point of Care 98 mg/dl (70-99)
[2025-06-13] MEDS: ROXICODONE 5 MG PO ×3 (01:51→18:28)
[2025-06-13] MEDS: ANCEF 5 IV ×2 (01:51→10:06)
[2025-06-13 02:49] LABS: Glucose - Point of Care 110 mg/dl (70-99)
--- NOTE | 2025-06-13 03:15 | PTCARENOTE ---
Labs drawn and sent. Repeat CI 2.53. NTG gtt at 60 mcg/min. Cuff BPs < 110, A-line BP 100-110's. PA aware. Roxicodone 5 mg po for sternal pain at 0151. Pt remains neuro intact. In SR with PVCs at times. Sats 95-96% on 6L/NC.
[2025-06-13 03:24] LABS: Hematocrit 34.9 % (39.0-52.0); Hemoglobin 11.5 g/dL (13.0-18.0); Mean Corp Hgb Conc. 33.0 g/dL (33.0-37.0); Mean Corpuscular Volume 101.7 fL (80.0-94.0); Platelet Count 118 10^3/uL (130-400); Red Cell Dist. Width 12.6 % (11.5-14.5)
[2025-06-13 03:38] LABS: Blood Urea Nitrogen 30 mg/dl (9-20); Calcium 8.2 mg/dl (8.4-10.2); Carbon Dioxide 24 mmol/L (22-30); Chloride 110 mmol/L (98-107); Estimated Creatinine Clearance 95 ml/min; Glucose 107 mg/dl (70-99); Magnesium 2.2 mg/dl (1.6-2.3); Potassium 4.2 mmol/L (3.5-5.1); Sodium 134 mmol/L (135-145); eGFR > 60.00
[2025-06-13 04:29] LABS: Glucose - Point of Care 105 mg/dl (70-99)
[2025-06-13] MEDS: DILAUDID 0.5 MG IV (05:21)
[2025-06-13 06:08] LABS: Glucose - Point of Care 98 mg/dl (70-99)
[2025-06-13] MEDS: TYLENOL 975 MG PO ×3 (06:39→22:04)
--- NOTE | 2025-06-13 07:15 | PTCARENOTE ---
Addendum entered by Isai Cabrera RN 06/13/25 07:22:
[place] Noris catheter d/c'ed per order and protocol at ~ 0530. A-line and Mann remain per order PA.
Original Note:
EKG done this am. CXR done this am. Pt helped to chair with 3 RNs. Pt first helped to sitting. C/O transient dizziness. Remains normotensive. Helped to standing. No c/o dizziness. Assisted to standing scale, weighed, then helped to chair. NTG
titrated off. Cuff BP 101-107 systolic. A-line BP 110-120 Systolic. PA aware. Sats 99%. O2 decreased to 4L/NC. Pt remains neuro intact. Report to GARRICK Bacon.
--- NOTE | 2025-06-13 07:44 | W.PN.INTV ---
Today's Communication / Plan
Recommendations
Postoperative management as per CT surgery
Goal BG 110�140
Pain control
Encourage incentive spirometer
Continue weaning off supplemental O2 with goal SpO2 >90-94%
Ambulatory pulse oximetry prior to discharge if unable to wean off oxygen or if resting SaO2 on room air at rest is <96%
Up OOB as tolerated
Cardiac rehab consult
Patient is going to be downgraded to CVICU�telemetry status. No additional recommendations at this time. Inorganic Chemical Technician/Pulmonary service will now sign off. Please reconsult if there are any additional questions/concerns, or if patient's respiratory
status deteriorates.
Assessment
-
Assessment: 74-year-old male with a past medical history of nonrheumatic aortic valve stenosis who presents for elective surgical aortic valve replacement. Patient known to the CT surgery service with last visit on 05/27/[address] Howe. He
has known mid LAD disease with an IFR of 0.88. Multidisciplinary team discussion held and there was discussion between TAVR versus SAVR. He does have significant calcium burden that infiltrates up into the measures and into the valve annulus which
places him at slightly higher risk for complications including aortic rupture and hemorrhage. Discussion held and due to this calcium distribution, surgery would actually be more controlled and safer compared to TAVR. Patient agreed to this
procedure, and on 06/12/2025 he underwent hemisternotomy with surgical aortic valve replacement with a 27 mm biological valve. There were no complications and he was transferred to the CVICU postoperatively for further care, with Inorganic Chemical Technician
service consulted for additional management/recommendations.
Chronic conditions CENTRIFUGAL OPERATOR: Severe aortic stenosis, BPH, hypercholesterolemia, hypertension, CAD (single-vessel)
Impression:
#Aortic valve stenosis with heavy calcification s/p hemisternotomy and surgical aortic valve replacement with 27 mm biological valve (POD #1)
#CAD involving mid LAD with an eccentric calcified 60% stenotic lesion which is IFR positive at 0.88 per [facility] on 05/17/2025)
#Hypertension
#Hyperlipidemia
#BPH
#Obesity (BMI: 34)
#Single-vessel CAD
Plan:
Patient successfully extubated yesterday and is now breathing comfortably on 2 L/min nasal cannula.
Continue to wean down supplemental O2 flow rate while keeping SpO2 >90-94%
If unable to fully wean off oxygen or if resting SaO2 is <96% on room air then check an ambulatory pulse oximetry prior to discharge
prn nebulized bronchodilators - not currently bronchospastic
Encourage incentive spirometer 10x an hour for at least 4 hours a day
Pulmonary artery catheter parameters will be followed
Pressors/antihypertensive/inotropes/diuretics will be provided as needed
Maintain MAP>65
Replete electrolytes with K>4, Mg>2
Monitor chest tube output
Monitor hemoglobin
Monitor platelet count and coags
Transfuse blood products as needed to maintain Hb>7g/dL, plt>50k (given post-operative status)
CT surgery managing chest tubes (mediastinal chest tube x 1)
Monitor blood sugar to maintain euglycemia with goal BG 110-140
Insulin drip now off; recommend to use ISS to keep BG at goal as above
Aspiration precautions
DVT prophylaxis
Early nutrition
Early mobilization
Patient is going to be downgraded to CVICU�telemetry status. No additional recommendations at this time. Inorganic Chemical Technician/Pulmonary service will now sign off. Thank you for allowing us to be involved in the care of this patient. Please reconsult if
there are any additional questions/concerns, or if patient's respiratory status deteriorates.
Data:
Intraoperative INGRID 06/12/2025:
Overall LVEF is approximately 55% with no RWMA.
Severe concentric left ventricular hypertrophy.
Stage II Diastolic dysfunction.
Mildly dilated left atrium.
Mild tricuspid regurgitation.
Severe aortic stenosis.
Mild aortic insufficiency.
KEENA calculates to 0.8 cm2 by continuity equation.
Moderate posterior MV annular calcification.
Mid ascending aorta is mildly dilated measuring 3.6 cm at the level of the RPA.
Mild sessile atheroma seen in the descending aorta and distal arch.
Left heart catheterization 05/17/2025:
1. Mid LAD at the level of the takeoff of a medium to large caliber second diagonal branch, there is an eccentric calcified 60% stenosis which is IFR positive at 0.88.
2. LVEDP of 26 mmHg.
3. Severe aortic stenosis with mean invasive gradient of 75 mmHg.
Total time spent today was 58 minutes for this encounter. Time includes reviewing laboratory test/imaging results, reviewing pertinent medical records, obtaining and reviewing medical history, performing an appropriate exam, ordering medications,
tests and procedures. Time also includes documentation of this encounter, coordinating patient care and communicating with other healthcare professionals. Total time does not include separately billed tests performed on this date of service.
Subjective Dataa
Subjective Data
Date of Service:
Date of Service: June 13, 2025
Chief Complaint: Inorganic Chemical Technician Follow Up
Subjective:
Patient seen and evaluated today at bedside. Heart rate 94, BP 124/74 and he is breathing comfortably on 2 L/min nasal cannula. Patient's , Kalyani, present at bedside and all questions were answered. He feels well in no acute distress, with no
acute events reported from overnight.
Review of Systems
General: Other (Negative unless mentioned above)
Objective Data
Data Reviewed
Vital Signs / I&O / Oxygen:
Vital Signs
Temp Pulse Resp BP Pulse Ox
100.1 F 94 19 117/65 97
06/13/25 05:00 06/13/25 06:05 06/13/25 06:05 06/13/25 06:00 06/13/25 06:05
Intake and Output
06/11/25 06/12/25 06/13/25
06:59 06:59 06:59
Intake Total 2097.7 / 2097.7
Output Total 960 / 960
Balance 1137.7 / 1137.7
SaO2 [CPAP] 99
SaO2 [SIMV] 95
SaO2 97
Nasal Cannula flow liters per 6
minute
Physical Exam
General: Respiratory Distress (negative), Comfortable, Chills (negative) and Sweats (negative)
HEENT: Normocephalic and Anicteric
Cardiovascular: S1-S2 and Peripheral Edema (negative)
Respiratory: Wheeze (negative), Crackles (negative), Rhonchi (negative), Non-Labored Respirations and Chest Tube (Mediastinal chest tube x 1)
GI: Soft, Non Distended, Non Tender and Normal Bowel Sounds
Neurology: Awake, Alert, Oriented and Tremors (negative)
Skin: Warm, Dry, Cyanosis (negative) and Jaundice (negative)
Labs/Micro/Reports
Lab Data
06/13/25 02:40
06/13/25 02:40
Laboratory Results
06/12/25 06/12/25 06/12/25
11:23 15:42 16:31
PT 16.2 H
INR 1.25
APTT 30.5
pH 7.32 L 7.49 H 7.52 H
pCO2 48 29 L 25 L
pO2 80 L 105 102
HCO3 24.7 22.1 20.4 L
O2 Delivery Level
06/12/25
19:34
PT
INR
APTT
pH 7.39
pCO2 37
pO2 82 L
HCO3 22.4
O2 Delivery Level
[2025-06-13 08:00] LABS: Glucose - Point of Care 104 mg/dl (70-99)
--- NOTE | 2025-06-13 08:00 | PTCARENOTE ---
Patient received from restaurant shift supervisor resting oob in chair, AAO X 3, c/o procedural pain, medicated for such (see MAR). NSR via cm, SaO2 @ 97% on 4lnc. RIJ Cordis w/kvo infusing. L radial arterial line present - leveled, flushed, and calibrated w/good
waveform returned. Epicardial V-wire to pulse generator at back up rate 30bpm, no spikes noted. Mann catheter to gravity. Mediastinal chest tube to -20cm suction, no air leak appreciated. All procedural sites stable. Insulin infusing peripherally,
titrating per glycemic protocol. Patient updated to plan of care for the day, in agreement. See work list for full assessment and interventions performed.
[2025-06-13] MEDS: BACTROBAN 2% OINTMENT 1 APPLIC NASAL ×2 (08:29→20:55)
[2025-06-13] MEDS: SENOKOT 8.6 MG PO ×2 (08:30→20:56)
[2025-06-13] MEDS: PACERONE 200 MG PO ×3 (08:30→22:00)
[2025-06-13] MEDS: LOPRESSOR 12.5 MG PO (08:30)
[2025-06-13] MEDS: MAGNESIUM OXIDE 400 MG PO ×2 (08:30→20:56)
[2025-06-13] MEDS: VITAMIN C 500 MG PO (08:30)
[2025-06-13] MEDS: PROTONIX 40 MG PO (08:31)
[2025-06-13] MEDS: LOW STRENGTH ASPIRIN 81 MG PO (08:31)
[2025-06-13] MEDS: LIDOCAINE 4% PATCH 1 PATCH TOPICAL (08:31)
[2025-06-13] MEDS: FEOSOL 325 MG PO (08:31)
[2025-06-13] MEDS: FLOMAX 0.4 MG PO (08:31)
[2025-06-13] MEDS: THERAGRAN 1 TABLET PO (08:31)
[2025-06-13] MEDS: NEURONTIN 100 MG PO ×3 (08:31→22:00)
[2025-06-13] MEDS: VITAMIN D3 (cholecalciferol) 25 MCG PO (08:31)
[2025-06-13 10:05] LABS: Glucose - Point of Care 92 mg/dl (70-99)
[2025-06-13] MEDS: NSS IV (10:38)
[2025-06-13] MEDS: FLEXERIL 5 MG PO ×2 (10:53→22:33)
--- NOTE | 2025-06-13 11:00 | W.PN.CARDCBS ---
Addendum entered and electronically signed by Liam Carroll MD 06/13/25 12:23:
I saw and examined the patient.
The Mobile Home Mechanic's note was reviewed and I agree with the note.
Comment:
GEN: No distress, awake, Ox3
HEENT: supple, anicteric, mmm
LUNGS: CTA, no wheezes/rales
CV: Reg, S1/S2, + slight rub
ABD: soft, BS+, NT/ND
EXT: No edema
NEURO: Gross non-focal
SKIN: No rash
PLan:
Overall doing well. EKG with some findings of pericarditis.
Remains in sinus rhythm. Continue amiodarone and metoprolol.
Could consider colchicine.
Hemoglobin stable at 11.5
Original Note:
Today's Communication / Plan
-
continue post op care
in SR
Impression / Plan
-
Primary Electrician Technician: Dr. Townsend
Assessment:
Severe symptomatic status post 27 mm biological AVR via Brennen sternotomy at third intercostal space 06/12/25
Mid LAD stenosis, iFR positive at 0.88, medically managed
PVCs
Hypertension
Hyperlipidemia
BPH
Lichen planus
Plan:
-status post 27 mm biological AVR via Brennen sternotomy at third intercostal space 06/12/25
-off pressors
-EKG 06/13 with evidence of pericarditis however no significant pain. with mild rub on exam. will follow.
-in SR on review of tele. continue amio/BB
-hgb 11.5. continue asa.
-he does have known mid LAD disease, iFR positive, however multidisciplinary discussion resulted in plan for medical mgmt
-continue post op care
-prior to admission was on norvasc 5mg HS
-d/w nursing, CT surg [facility]. d/w family at bedside
Progress Note - Electrician Technician
Subjective
Date of Service: June 13, 2025
overall feeling well. reports some pain with deep breathing
Objective
Labs:
06/13/25 02:40
06/13/25 02:40
Labs
Hgb 11.5 g/dL (13.0-18.0) L 06/13/25 02:40
Hct 34.9 % (39.0-52.0) L 06/13/25 02:40
Plt Count 118 10^3/uL (130-400) L 06/13/25 02:40
PT 16.2 Sec (11.4-14.6) H 06/12/25 11:23
INR 1.25 06/12/25 11:23
APTT 30.5 Sec (23.4-35.0) 06/12/25 11:23
Sodium 134 mmol/L (135-145) L 06/13/25 02:40
Potassium 4.2 mmol/L (3.5-5.1) 06/13/25 02:40
BUN 30 mg/dl (9-20) H 06/13/25 02:40
Creatinine 0.8 mg/dL (0.7-1.3) 06/13/25 02:40
Glucose 107 mg/dl (70-99) H 06/13/25 02:40
Vital Signs and I&O:
Vital Signs
Temp Pulse Resp BP Pulse Ox
98.4 F 93 31 107/61 98
06/13/25 08:00 06/13/25 10:30 06/13/25 10:30 06/13/25 10:00 06/13/25 10:30
Vital Signs
Temp Pulse Resp BP Pulse Ox
98.4 F 93 31 107/61 98
06/13/25 08:00 06/13/25 10:30 06/13/25 10:30 06/13/25 10:00 06/13/25 10:30
Intake & Output
06/11/25 06/12/25 06/13/25 06/14/25
07:59 07:59 07:59 07:59
Intake Total 2108.2 / 2598.9 511.8 / 511.8
Output Total 995 / 1045 95 / 95
Balance 1113.2 / 1553.9 416.8 / 416.8
Physical Exam
Physical Exam
GEN: No distress, awake, alert, oriented x3. sitting in chair. on supp O2
HEENT: supple, anicteric, mmm, eomi
LUNGS: CTA B/L, no wheezes/rales
CV: Reg, S1/S2, no murmur, + rub
ABD: soft, BS+, NT/ND
EXT: No cyanosis, clubbing. trace edema of B/L LE
NEURO: Gross non-focal
SKIN: Warm, pink, dry. No rash. Mini sternotomy incision c/d/i
--- NOTE | 2025-06-13 11:08 | CM ---
Reviewed chart. Met with and Mrs. Goins and their daughter to review discharge plans. He states he is feeling okay. He states prior to admission he resides with his spouse in a one story home with three steps to enter. He states he does not have
any railings on the steps. He states prior to admission he was independent with ambulation and adls. He states he does not have any DME in the home. He states he has a prescription plan. We reviewed a home visit by the Transitional Care Nurse.
He is agreeable to a home visit. Medical work-up in progress. The discharge plan is to return home with his spouse and a home visit by the Transitional Care Nurse when medically stable.
--- NOTE | 2025-06-13 11:32 | W.PN.ANS.POP ---
Anesthesia Post Operative
- Anesthesia Post Op Note
Vital Signs Stable-See Nursing Note: Yes
Airway Patent: Yes
Adequate Pain Control: Yes
Change in Mental Status: No
Current Postoperative Nausea & Vomiting: No
Anesthesia Complications: No
General Anesthetic Recall: No
Unplanned Admission: No
Post Op Hydration Adequate: Yes
--- NOTE | 2025-06-13 12:13 | PTCARENOTE ---
Assessment stable. Patient assisted back oob after brief rest. Settled to chair, cardiac rehab exercises performed. Lunch ordered, family at bedside.
[2025-06-13] MEDS: FERRLECIT 110 MG IV (13:50)
[2025-06-13] MEDS: LIPITOR 40 MG PO (18:06)
--- NOTE | 2025-06-13 20:30 | PTCARENOTE ---
Report received from GARRICK Bacon. Walking rounds done. Pt assessed. VS done. Awake, alert, oriented x 4. Received Oxycodone 5 mg from day shift RN. States + relief. On 2L while in bed. CDB and IS done. IS peak 1000 mls. O2 increased to 4L/NC. Sats
up to 95%. BBS present. Decreased B bases. Mediastinal CT x 1 to -20 cm suction, SSG drainage. Audible heart tones. No rub. Pt in ST with occasional PACs. V wire insulated. Metoprolol 25 mg po given. Normotensive. +2 palpable DP and Radial pulses.
For wound and edema assessments, see flowsheets. Belly soft, nontender. Passing flatus. Hypoactive bs x 4. Voided clear yellow urine x 2 into urinal, 300 and 500 mls. at bedside. Ongoing plan of care.
[2025-06-13] MEDS: REMOVE LIDOCAINE PATCH 1 PATCH REMOVE (20:56)
[2025-06-13] MEDS: LOPRESSOR 25 MG PO (20:56)
--- NOTE | 2025-06-13 22:35 | PTCARENOTE ---
EKG done per PA order. Angie MUSE at bedside to assess pt. CHG bath done. Face washed by . Mouthwash provided. Flexeril 5 mg po given for c/o sternal pain. Pt attempting to go to sleep for evening. home for evening.
[2025-06-14] VITALS (11 sets, daily range): BP systolic 98–142; BP diastolic 65–80; PULSE 93; O2SAT 95–142; BMI 34.9
--- NOTE | 2025-06-14 | PTCARENOTE ---
Pt forgot to take cap off urinal. Voided in bed. Pt cleansed, new gown and linens applied to bed. Pt going back to sleep. Remains in SR-ST with PACs. No co pain.
--- NOTE | 2025-06-14 01:56 | W.PN.CT ---
Today's Communication / Plan
-
-pod #3
-no significant issues overnight, ambulates without problems
-will cut stopper in the groin today
-tachy postop - continue Toprol 75 mg qd
-weaned off O2
-ambulate, encourage IS, OOB
-possible d/c soon
Assessment / Plan
-
- Severe symptomatic Aortic valve stenosis with heavy calcification- s/p Brennen sternotomy to the right at the third intercostal space; Surgical aortic valve replacement [27 mm Gardner Inspira's Resilia biological valve] by Dr. Howe on 06/12/25, pod
#3
- Intraop INGRID: LVEF was normal at 65% pre and postop with no significant regional wma. At conclusion of the case, there was no paravalvular leak, the mean gradient across the valve was 2 mmHg.
- Hypertension
- Hyperlipidemia
- BPH
- Single-vessel LAD coronary artery disease, asymptomatic
- Non-smoker
- Acute postop blood loss anemia - no transfusions
- Acute postop thrombocytopenia
- Acute postop atelectasis/ pulmonary insufficiency
- Acute postop hypovolemia with subsequent hypervolemia
- Suspected acute postop pericarditis/rub- started Colchicine
Discussed patient care with: Nursing and Care Team
Subjective
-
Date of Service: June 14, 2025
Objective Data
-
PT 16.2 Sec (11.4-14.6) H 06/12/25 11:23
INR 1.25 06/12/25 11:23
APTT 30.5 Sec (23.4-35.0) 06/12/25 11:23
Vital Signs
Vital Signs
Temp Pulse Resp BP Pulse Ox
98.4 F 99 15 129/69 95
06/13/25 22:27 06/14/25 00:00 06/13/25 22:27 06/13/25 22:27 06/14/25 00:11
CT Intake/Output/Weight
06/13/25 06/13/25 06/14/25
06:59 18:59 06:59
Intake Total 700.0 / 2108.2 1082.7 / 1142.7 60 / 1142.7
Output Total 475 / 995 220 / 1065 845 / 1065
Balance 225.0 / 1113.2 862.7 / 77.7 -785 / 77.7
SaO2: 95
Physical Exam
-
General: Awake and AOx3
Cardiovascular: Regular rate & rhythm, No Murmurs and Rub
Respiratory: Decreased Breath Sounds
Sternum: Stable
Incision: Clean, Dry and Intact
Extremities: Edema +1 (2+DPs b/l)
Abdomen: soft, nontender, nondistended, + bowel sounds
Data Reviewed
-
Lab Results: Results Reviewed
Medications: Active Meds Reviewed
Chest X-Ray: Report Reviewed and Image Reviewed
ECG: Report Reviewed and Image Reviewed
--- NOTE | 2025-06-14 02:00 | PTCARENOTE ---
VS done. See flowsheet. Pt voided, urinal emptied. Going back to sleep.
[2025-06-14] MEDS: LOPRESSOR 25 MG PO (05:25)
[2025-06-14] MEDS: TYLENOL 975 MG PO ×3 (05:26→22:15)
[2025-06-14 05:33] LABS: Hematocrit 35.7 % (39.0-52.0); Hemoglobin 11.5 g/dL (13.0-18.0); Mean Corp Hgb Conc. 32.2 g/dL (33.0-37.0); Mean Corpuscular Volume 102.9 fL (80.0-94.0); Platelet Count 109 10^3/uL (130-400); Red Cell Dist. Width 12.5 % (11.5-14.5)
[2025-06-14 05:35] LABS: Blood Urea Nitrogen 28 mg/dl (9-20); Calcium 8.2 mg/dl (8.4-10.2); Carbon Dioxide 30 mmol/L (22-30); Chloride 106 mmol/L (98-107); Estimated Creatinine Clearance 95 ml/min; Glucose 98 mg/dl (70-99); Magnesium 2.1 mg/dl (1.6-2.3); Sodium 136 mmol/L (135-145); eGFR > 60.00
[2025-06-14 05:40] LABS: Potassium 4.0 mmol/L (3.5-5.1)
--- NOTE | 2025-06-14 06:30 | PTCARENOTE ---
Pt with 16 beat run VT. Asymptomatic, rate 105 bpm. Converted to SR, 70's. PA made aware. Metoprolol 25 mg po given early this am. Pt helped to chair at 0630. Normotensive. No dizziness/lightheadedness. Remained in SR. Weighed on standing scale,
helped to chair.
--- NOTE | 2025-06-14 08:00 | PTCARENOTE ---
pt received from previous RN, oriented, OOB in chair. SR on the monitor, HR 70s. V wire insulated. SBP 110s. palpable pulses, +1 hand/LE edema. pt on 2LNC, 96% POX. lungs clear, diminished in bases. IS encouraged. CTx1, no air leak or crepitus
noted. pt abdomen s/n, denies n/v. diet tolerated well. +BS, +flatus. voids. sternal incision LOLIS. chest tube site c/d/i. R groin site c/d/i, ecchymotic. RIJ cordis maintained. PIV. see worklist for VS, I&O, and assessment.
[2025-06-14] MEDS: SENOKOT 8.6 MG PO ×2 (08:09→19:54)
[2025-06-14] MEDS: THERAGRAN 1 TABLET PO (08:09)
[2025-06-14] MEDS: VITAMIN C 500 MG PO (08:09)
[2025-06-14] MEDS: FLOMAX 0.4 MG PO (08:09)
[2025-06-14] MEDS: VITAMIN D3 (cholecalciferol) 25 MCG PO (08:09)
[2025-06-14] MEDS: LOW STRENGTH ASPIRIN 81 MG PO (08:10)
[2025-06-14] MEDS: NEURONTIN 100 MG PO ×3 (08:10→22:15)
[2025-06-14] MEDS: MAGNESIUM OXIDE 400 MG PO ×2 (08:10→19:54)
[2025-06-14] MEDS: COLCHICINE 0.3 MG PO (08:10)
[2025-06-14] MEDS: LIDOCAINE 4% PATCH 1 PATCH TOPICAL (08:10)
[2025-06-14] MEDS: PROTONIX 40 MG PO (08:10)
[2025-06-14] MEDS: PACERONE 200 MG PO ×3 (08:11→22:15)
[2025-06-14] MEDS: BACTROBAN 2% OINTMENT 1 APPLIC NASAL ×2 (08:11→19:54)
[2025-06-14] MEDS: FLEXERIL 5 MG PO (09:13)
[2025-06-14] MEDS: LASIX 40 MG PO (09:14)
--- NOTE | 2025-06-14 09:44 | CM ---
Reviewed chart. Met with and Mrs. Goins and his daughter to review discharge plans. He states he is feeling well. Will need to see how he does with ambulation when able. We reviewed a home visit by Transitional Care Nurse. He is agreeable to a
home visit. Prior to admission he resides with his spouse in a one story home with three steps to enter. He states he does not have any railings on the steps. He states prior to admission he was independent with ambulation and adls. He states he
does not have any DME in the home. He states he has a prescription plan. Medical work-up in progress. The discharge plan is to return home with his spouse and a home visit by the Transitional Care Nurse when medically stable.
--- NOTE | 2025-06-14 10:33 | W.PN.CARDCBS ---
Addendum entered and electronically signed by Rut Yi DO 06/14/25 14:59:
I saw and examined the patient.
The Machine Shop Apprentice's note was reviewed and I agree with the note.
Comment: Patient seen and examined sitting out of bed to chair after having chest tubes removed. Denies chest pain or pressure. Mild incisional pain. No dizziness or lightheadedness. Voiding well.
General: No acute distress, AAOX3
Heart: Regular, positive S1/S2, no murmur or rub.
Lungs: Bronchovesicular breath sounds with fine crackles left base. No wheezes.
Abd: Mildly distended but nontender. Positive bowel sounds.
Ext: trace pedal edema
Neuro: nonfocal
Plan:
74-year-old gentleman with severe symptomatic aortic stenosis status post 27 mm biological AVR via Brennen sternotomy at third intercostal space 06/12/25
- Hemodynamically stable remaining in sinus rhythm off pressors
- Chest tube removed earlier today by CT surgery
-remains with evidence of pericarditis by EKG/tele, however without significant pain. colchicine started per primary service
-in SR on review of tele with 1 brief run of NSVT, asymptomatic. toprol dose increased this AM. continue po amio
-hgb 11.5. continue asa
-he does have known mid LAD disease, iFR positive, however multidisciplinary discussion resulted in plan for medical mgmt
-encouraged OOB/IS
-prior to admission was on norvasc 5mg HS
-d/w nursing. d/w family at bedside
Original Note:
Today's Communication / Plan
-
continue post op care
started on colchicine
toprol dose increased
OOB/IS
Impression / Plan
-
Primary Button Tufter: Dr. Townsend
Assessment:
Severe symptomatic status post 27 mm biological AVR via Brennen sternotomy at third intercostal space 06/12/25
Mid LAD stenosis, iFR positive at 0.88, medically managed
PVCs
Hypertension
Hyperlipidemia
BPH
Lichen planus
Plan:
-status post 27 mm biological AVR via Brennen sternotomy at third intercostal space 06/12/25
-looks well
-for last CT removal today
-remains with evidence of pericarditis by EKG/tele, however without significant pain. colchicine started per primary service
-in SR on review of tele with 1 brief run of NSVT, asymptomatic. toprol dose increased this AM. continue po amio
-hgb 11.5. continue asa
-he does have known mid LAD disease, iFR positive, however multidisciplinary discussion resulted in plan for medical mgmt
-encouraged OOB/IS
-prior to admission was on norvasc 5mg HS
-d/w nursing. d/w family at bedside
Progress Note - Button Tufter
Subjective
Date of Service: June 14, 2025
feeling well.
Objective
Labs:
06/14/25 04:52
06/14/25 04:52
Labs
Hgb 11.5 g/dL (13.0-18.0) L 06/14/25 04:52
Hct 35.7 % (39.0-52.0) L 06/14/25 04:52
Plt Count 109 10^3/uL (130-400) L 06/14/25 04:52
PT 16.2 Sec (11.4-14.6) H 06/12/25 11:23
INR 1.25 06/12/25 11:23
APTT 30.5 Sec (23.4-35.0) 06/12/25 11:23
Sodium 136 mmol/L (135-145) 06/14/25 04:52
Potassium 4.0 mmol/L (3.5-5.1) 06/14/25 04:52
BUN 28 mg/dl (9-20) H 06/14/25 04:52
Creatinine 0.8 mg/dL (0.7-1.3) 06/14/25 04:52
Glucose 98 mg/dl (70-99) 06/14/25 04:52
Vital Signs and I&O:
Vital Signs
Temp Pulse Resp BP Pulse Ox
98.1 F 78 18 106/72 93
06/14/25 08:00 06/14/25 10:00 06/14/25 08:00 06/14/25 09:14 06/14/25 10:00
Vital Signs
Temp Pulse Resp BP Pulse Ox
98.1 F 78 18 106/72 93
06/14/25 08:00 06/14/25 10:00 06/14/25 08:00 06/14/25 09:14 06/14/25 10:00
Intake & Output
06/12/25 06/13/25 06/14/25 06/15/25
07:59 07:59 07:59 07:59
Intake Total 2108.2 / 2598.9 1192.2 / 1202.2 220 / 220
Output Total 995 / 1045 1540 / 1555
Balance 1113.2 / 1553.9 -347.8 / -352.8 205 / 205
Physical Exam
Physical Exam
GEN: No distress, awake, alert, oriented x3. sitting in chair.
HEENT: supple, anicteric, mmm, eomi
LUNGS: CTA B/L, no wheezes/rales
CV: Reg, S1/S2, no murmur
ABD: soft, BS+, NT/ND
EXT: No cyanosis, clubbing. trace edema of B/L LE
NEURO: Gross non-focal
SKIN: Warm, pink, dry. No rash. Mini sternotomy incision c/d/i
[2025-06-14] MEDS: MYCELEX TROCHE 10 MG S (12:17)
[2025-06-14] MEDS: NSS 500 IV (12:17)
[2025-06-14] MEDS: TOPROL XL 50 MG PO (12:17)
--- NOTE | 2025-06-14 12:27 | PTCARENOTE ---
pt VSS, pt placed back to bed, Med CT dc'd as ordered, dressing c/d/i. OOB in chair for lunch. IS encouraged. oral hygiene provided, face washed. voids in urinal.
[2025-06-14] MEDS: FERRLECIT 110 MG IV (14:16)
--- NOTE | 2025-06-14 16:15 | PTCARENOTE ---
pt VSS, no changes in assessment. pt voids in urinal. no c/o pain. ambulates in hallway w/ stand by assist. IS encouraged.
[2025-06-14] MEDS: LIPITOR 40 MG PO (17:43)
[2025-06-14] MEDS: REMOVE LIDOCAINE PATCH 1 PATCH REMOVE (19:54)
--- NOTE | 2025-06-14 20:00 | PTCARENOTE ---
resumed care of pt sitting in chair AAOx3. HR in the 80's in NSR with PVC's on the monitor. Epicardial V wire in place, insulated, temp pacemaker off and at bedside. POX 94% on Ra. Midsternal chest incision open to air with surg glue/ ecchymosis
present. Lungs dec at bases. + bowel round abd. Chest tube site dressing C/D/I. Right groin site dressing C/D/I with local ecchymosis noted. Palpable peripheral pulses present. Right IJ cordis in place with NSS@KVO. Right forearm int capped. Pt
assisted to walk in hallway, pt able to walk with standby assist down to waiting room to look out windows and back to room without difficulty. Pt ambulatory to bathroom, oral care complete, face washed. Pt settled in bed per comfort. Knee high seq
in place. No issues to report at this time. Call munoz in reach. Will continue to monitor.
[2025-06-15] VITALS (13 sets, daily range): BP systolic 103–123; BP diastolic 67–79; PULSE 85; O2SAT 94–95; BMI 34.7
--- NOTE | 2025-06-15 03:07 | W.PN.CT ---
Addendum entered and electronically signed by Jono Howe MD 06/15/25 08:59:
I saw and examined the patient.
The PA's note was reviewed and I agree with the note.
Comment:
Continue with some oral diuretics. Otherwise looks great. Will increase beta-isaura and see if his heart rate can tolerate it. Still little bit fast. Otherwise we will likely discharge him today.
Original Note:
Today's Communication / Plan
-
-pod #3
-doing well, ambulates in hallways
-no issues overnight
-diuresed well with 40 po Lasix on 06/14. UO 1450/3525 in 12/24 hrs
-will need to cut stopper in groin today
-current meds (ASA, Lipitor, Toprol XL 75 qd, Amio, Colchicine, Flomax, Protonix)
-encourage IS, OOB, ambulate
-possible d/c soon
Assessment / Plan
-
- Severe symptomatic Aortic valve stenosis with heavy calcification- s/p Brennen sternotomy to the right at the third intercostal space; Surgical aortic valve replacement [27 mm Gardner Inspira's Resilia biological valve] by Dr. Howe on 06/12/25, pod
#3
- Intraop INGRID: LVEF was normal at 65% pre and postop with no significant regional wma. At conclusion of the case, there was no paravalvular leak, the mean gradient across the valve was 2 mmHg.
- Hypertension
- Hyperlipidemia
- BPH
- known mid LAD disease, iFR positive, however multidisciplinary discussion resulted in plan for medical mgmt
- Non-smoker
- Acute postop blood loss anemia - no transfusions
- Acute postop thrombocytopenia
- Acute postop atelectasis/ pulmonary insufficiency
- Acute postop hypovolemia with subsequent hypervolemia
- Suspected acute postop pericarditis/rub- started Colchicine
Discussed patient care with: Nursing and Care Team
Subjective
-
Date of Service: June 15, 2025
Objective Data
-
PT 16.2 Sec (11.4-14.6) H 06/12/25 11:23
INR 1.25 06/12/25 11:23
APTT 30.5 Sec (23.4-35.0) 06/12/25 11:23
Vital Signs
Vital Signs
Temp Pulse Resp BP Pulse Ox
98.6 F 82 20 139/77 92
06/14/25 22:12 06/14/25 22:30 06/14/25 22:12 06/14/25 22:15 06/14/25 22:12
CT Intake/Output/Weight
06/14/25 06/14/25 06/15/25
06:59 18:59 06:59
Intake Total 120 / 1202.7 350 / 350
Output Total 1355 / 1575 2090 / 3190 1100 / 3190
Balance -1235 / -372.3 -1740 / -2840 -1100 / -2840
SaO2: 92
Physical Exam
-
General: AOx3
Cardiovascular: Regular rate & rhythm, No Murmurs and No Rub
Respiratory: Clear and Decreased Breath Sounds
Sternum: Stable
Incision: Clean, Dry and Intact
Extremities: Edema +1 (2+DPs b/l)
Abdomen: soft, nontender, nondistended, + bowel sounds
Data Reviewed
-
Lab Results: Results Reviewed
Medications: Active Meds Reviewed
Chest X-Ray: Report Reviewed and Image Reviewed
ECG: Report Reviewed and Image Reviewed
[2025-06-15 04:44] LABS: Hematocrit 33.4 % (39.0-52.0); Hemoglobin 11.0 g/dL (13.0-18.0); Mean Corp Hgb Conc. 32.9 g/dL (33.0-37.0); Mean Corpuscular Volume 102.8 fL (80.0-94.0); Platelet Count 113 10^3/uL (130-400); Red Cell Dist. Width 12.4 % (11.5-14.5)
[2025-06-15 05:00] LABS: Blood Urea Nitrogen 24 mg/dl (9-20); Calcium 8.1 mg/dl (8.4-10.2); Carbon Dioxide 29 mmol/L (22-30); Chloride 109 mmol/L (98-107); Estimated Creatinine Clearance 96 ml/min; Glucose 80 mg/dl (70-99); Magnesium 2.1 mg/dl (1.6-2.3); Potassium 3.9 mmol/L (3.5-5.1); Sodium 137 mmol/L (135-145); eGFR > 60.00
[2025-06-15] MEDS: TYLENOL 975 MG PO ×3 (05:37→21:59)
--- NOTE | 2025-06-15 06:40 | PTCARENOTE ---
PT slept well overnight. Pt using urinal independently when needed. Pt awake this am, OOB to chair without difficulty. [facility] bath provided. Oral care complete. Vital signs stable. no issues to report. Call munoz in reach. Will continue to monitor.
[2025-06-15] MEDS: VITAMIN C 500 MG PO (07:45)
[2025-06-15] MEDS: PROTONIX 40 MG PO (07:45)
[2025-06-15] MEDS: LOW STRENGTH ASPIRIN 81 MG PO (07:45)
[2025-06-15] MEDS: SENOKOT 8.6 MG PO ×2 (07:46→19:47)
[2025-06-15] MEDS: COLCHICINE 0.3 MG PO (07:46)
[2025-06-15] MEDS: VITAMIN D3 (cholecalciferol) 25 MCG PO (07:46)
[2025-06-15] MEDS: FLOMAX 0.4 MG PO (07:46)
[2025-06-15] MEDS: THERAGRAN 1 TABLET PO (07:46)
[2025-06-15] MEDS: MAGNESIUM OXIDE 400 MG PO ×2 (07:46→19:47)
[2025-06-15] MEDS: NEURONTIN 100 MG PO ×3 (07:46→22:00)
[2025-06-15] MEDS: BACTROBAN 2% OINTMENT 1 APPLIC NASAL ×2 (07:47→19:47)
[2025-06-15] MEDS: LIDOCAINE 4% PATCH 1 PATCH TOPICAL (07:49)
[2025-06-15] MEDS: TOPROL XL 75 MG PO (07:54)
[2025-06-15] MEDS: PACERONE 200 MG PO ×3 (07:54→22:00)
--- NOTE | 2025-06-15 08:07 | PTCARENOTE ---
Assumed patient care from nightshift RN. Pt sitting in chair, fully alert and oriented. Afebrile, 97.9F. HR 70s, NSR. V-wire in place, insulated, temp pacemaker at bedside. Bilateral upper and lower extremity pulses palpable. Trace edema noted at
bilateral ankles. Pulse ox 95% on room air, lungs diminished at bilateral bases, pt denies shortness of breath, no cough present. Abd soft, non-tender, bowel sounds present, passing flatus, no bowel movement yet, senna provided, good appetite
overall. Chest tube site dressings clean, dry, intact. Sternal incision open to air with sugrical adhesive, no drainage. RIJ cordis present with NSS KVO. Pt stood up from chair with minimal assist x1, pressure redistributing waffle cushion placed on
chair for comfort. IS and OOB encouraged. Call munoz within reach. Will continue to closely monitor.
[2025-06-15] MEDS: TOPROL XL 25 MG PO (09:32)
[2025-06-15] MEDS: LASIX 40 MG PO (09:34)
[2025-06-15] MEDS: KCL 20 MEQ PO (09:34)
[2025-06-15] MEDS: NSS IV (09:36)
--- NOTE | 2025-06-15 12:06 | W.PN.CARDCBS ---
Today's Communication / Plan
-
Supportive postoperative care
Impression / Plan
-
Primary Rent And Miscellaneous Remittance Clerk: Dr. Townsend
Assessment:
Severe symptomatic status post 27 mm biological AVR via Brennen sternotomy at third intercostal space 06/12/25
Mid LAD stenosis, iFR positive at 0.88, medically managed
PVCs
Hypertension
Hyperlipidemia
BPH
Lichen planus
Plan:
74-year-old gentleman with severe symptomatic aortic stenosis status post 27 mm biological AVR via Brennen sternotomy at third intercostal space 06/12/25
- Hemodynamically stable remaining in sinus rhythm off pressors
- D- lined to per CT surgery y
- Diurese with oral Lasix
-No chest pain or pressure suggestive of angina; he does have known mid LAD disease, iFR positive, however multidisciplinary discussion resulted in plan for medical mgmt
- PT/OT
Progress Note - Rent And Miscellaneous Remittance Clerk
Subjective
Date of Service: June 15, 2025
Seen and examined. Out of bed to chair. Ambulated well with PT and plan to do steps today.
Objective
Labs:
06/15/25 04:13
06/15/25 04:13
Labs
Hgb 11.0 g/dL (13.0-18.0) L 06/15/25 04:13
Hct 33.4 % (39.0-52.0) L 06/15/25 04:13
Plt Count 113 10^3/uL (130-400) L 06/15/25 04:13
PT 16.2 Sec (11.4-14.6) H 06/12/25 11:23
INR 1.25 06/12/25 11:23
APTT 30.5 Sec (23.4-35.0) 06/12/25 11:23
Sodium 137 mmol/L (135-145) 06/15/25 04:13
Potassium 3.9 mmol/L (3.5-5.1) 06/15/25 04:13
BUN 24 mg/dl (9-20) H 06/15/25 04:13
Creatinine 0.8 mg/dL (0.7-1.3) 06/15/25 04:13
Glucose 80 mg/dl (70-99) 06/15/25 04:13
Vital Signs and I&O:
Vital Signs
Temp Pulse Resp BP Pulse Ox
97.9 F 74 18 121/73 95
06/15/25 07:34 06/15/25 09:32 06/15/25 07:34 06/15/25 09:32 06/15/25 08:17
Vital Signs
Temp Pulse Resp BP Pulse Ox
97.9 F 74 18 121/73 95
06/15/25 07:34 06/15/25 09:32 06/15/25 07:34 06/15/25 09:32 06/15/25 08:17
Intake & Output
06/13/25 06/14/25 06/15/25 06/16/25
06:59 06:59 06:59 06:59
Intake Total 2097.7 / 2108.2 1202.7 / 1202.7 350 / 350 280 / 280
Output Total 960 / 995 1575 / 1575 3540 / 3540 250 / 250
Balance 1137.7 / 1113.2 -372.3 / -372.3 -3190 / -3190 30 / 30
Physical Exam
Physical Exam
General: No acute distress, AAOX3
Heart: Regular, positive S1/S2, no murmur or rub.
Lungs: Bronchovesicular breath sounds with fine crackles left base. No wheezes.
Abd: Mildly distended but nontender. Positive bowel sounds.
Ext: trace pedal edema
Neuro: nonfocal
[2025-06-15] MEDS: FERRLECIT 110 MG IV (13:34)
--- NOTE | 2025-06-15 14:53 | PTCARENOTE ---
Patient OOB in chair. Vital signs stable. 2-View CXR complete. Worked with cardiac rehab and performed stairs, well tolerated. Patient had bowel movement.
--- NOTE | 2025-06-15 17:17 | PTCARENOTE ---
Patient OOB in chair. Tolerating meals well. RIJ cordis discontinued. V-wire remains insulated. Voiding without complication. Vital signs stable. Report given to IVU
[2025-06-15] MEDS: LIPITOR 40 MG PO (17:28)
--- NOTE | 2025-06-15 17:47 | PTCARENOTE ---
Received pt from [facility], Ox3, monitor shows NSR, VSS. Denies pain at present. Midsternal incision COUNTER TOP ASSEMBLER, slight ecchymosis noted, no drainage. Dressing intact to CT site, insulated V-wire intact. Right groin dressing c/d/i, slight ecchymosis noted, no
bleeding, no hematoma. Oriented to room, call munoz in reach.
[2025-06-15] MEDS: REMOVE LIDOCAINE PATCH REMOVE (19:47)
--- NOTE | 2025-06-15 22:37 | PTCARENOTE ---
Patient received at change of shift out of bed to the chair. Surgical sites intact. Epicardial temp V-wire insulated. Wound care completed, see worklist. Sinus rhythm on telemetry. Oxygen saturation 94-96% on room air. The patient endorses
intermittent mild incisional pain at his sternum but reports that it is well controlled with his scheduled pain medications. Voiding clear yellow urine. Ambulating w/o difficulty, maintaining sternal precautions. Call munoz within reach. Care
ongoing.
--- NOTE | 2025-06-16 02:49 | W.PN.CT ---
Today's Communication / Plan
-
-pod #4
-doing well
-no issues overnight
-diuresing with daily 40 po Lasix. UO 900/1875 in 12/24 hrs
-current meds (ASA, Lipitor, Toprol XL 100 qd, Amio, Colchicine, Flomax, Protonix)
-encourage IS, OOB, ambulate
-cut pw prior to discharge
-d/c today
Assessment / Plan
-
- Severe symptomatic Aortic valve stenosis with heavy calcification- s/p Brennen sternotomy to the right at the third intercostal space; Surgical aortic valve replacement [27 mm Gardner [employer]ira's Resilia biological valve] by Dr. Howe on 06/12/25, pod
#4
- Intraop INGRID: LVEF was normal at 65% pre and postop with no significant regional wma. At conclusion of the case, there was no paravalvular leak, the mean gradient across the valve was 2 mmHg.
- Hypertension
- Hyperlipidemia
- BPH
- Single-vessel LAD coronary artery disease, asymptomatic
- Non-smoker
- Acute postop blood loss anemia - no transfusions
- Acute postop thrombocytopenia
- Acute postop atelectasis/ pulmonary insufficiency
- Acute postop hypovolemia with subsequent hypervolemia
- Suspected acute postop pericarditis/rub- started Colchicine
Discussed patient care with: Nursing and Care Team
Subjective
-
Date of Service: June 16, 2025
Objective Data
-
PT 16.2 Sec (11.4-14.6) H 06/12/25 11:23
INR 1.25 06/12/25 11:23
APTT 30.5 Sec (23.4-35.0) 06/12/25 11:23
Vital Signs
Vital Signs
Temp Pulse Resp BP Pulse Ox
98.7 F 68 18 110/72 93
06/15/25 23:09 06/16/25 02:00 06/15/25 23:09 06/15/25 23:12 06/15/25 23:09
CT Intake/Output/Weight
06/15/25 06/15/25 06/16/25
06:59 18:59 06:59
Intake Total 400 / 400
Output Total 1450 / 3540 975 / 1875 900 / 1875
Balance -1450 / -3190 -575 / -1475 -900 / -1475
SaO2: 93
Physical Exam
-
General: AOx3
Cardiovascular: Regular rate & rhythm, No Murmurs and No Rub
Respiratory: Clear and Decreased Breath Sounds
Sternum: Stable
Incision: Clean, Dry and Intact
Abdomen: soft, nontender, nondistended, + bowel sounds
Extremities: Edema +1 (2+DPs b/l)
Data Reviewed
-
Lab Results: Results Reviewed
Medications: Active Meds Reviewed
Chest X-Ray: Report Reviewed and Image Reviewed
ECG: Report Reviewed and Image Reviewed
[2025-06-16 03:05] VITALS: BP 114/65
[2025-06-16 03:08] VITALS: BMI 34.7
[2025-06-16 03:54] LABS: Hematocrit 33.9 % (39.0-52.0); Hemoglobin 11.5 g/dL (13.0-18.0); Mean Corp Hgb Conc. 33.9 g/dL (33.0-37.0); Mean Corpuscular Volume 98.0 fL (80.0-94.0); Platelet Count 141 10^3/uL (130-400); Red Cell Dist. Width 12.6 % (11.5-14.5)
[2025-06-16 04:17] LABS: Blood Urea Nitrogen 20 mg/dl (9-20); Calcium 8.4 mg/dl (8.4-10.2); Carbon Dioxide 28 mmol/L (22-30); Chloride 108 mmol/L (98-107); Estimated Creatinine Clearance 96 ml/min; Glucose 93 mg/dl (70-99); Magnesium 2.1 mg/dl (1.6-2.3); Potassium 4.2 mmol/L (3.5-5.1); Sodium 139 mmol/L (135-145); eGFR > 60.00
[2025-06-16] MEDS: TYLENOL 975 MG PO (05:35)
[2025-06-16 07:05] VITALS: BP 122/70
[2025-06-16] MEDS: LOW STRENGTH ASPIRIN 81 MG PO (08:10)
[2025-06-16] MEDS: THERAGRAN 1 TABLET PO (08:10)
[2025-06-16] MEDS: BACTROBAN 2% OINTMENT 1 APPLIC NASAL (08:10)
[2025-06-16] MEDS: TOPROL XL 100 MG PO (08:10)
[2025-06-16] MEDS: FLOMAX 0.4 MG PO (08:10)
[2025-06-16] MEDS: VITAMIN D3 (cholecalciferol) 25 MCG PO (08:10)
[2025-06-16] MEDS: NEURONTIN 100 MG PO (08:10)
[2025-06-16] MEDS: KCL 20 MEQ PO (08:10)
[2025-06-16] MEDS: VITAMIN C 500 MG PO (08:10)
[2025-06-16] MEDS: SENOKOT 8.6 MG PO (08:10)
[2025-06-16] MEDS: MAGNESIUM OXIDE 400 MG PO (08:10)
[2025-06-16] MEDS: LASIX 40 MG PO (08:11)
[2025-06-16] MEDS: PROTONIX 40 MG PO (08:11)
[2025-06-16] MEDS: COLCHICINE 0.3 MG PO (08:11)
[2025-06-16] MEDS: PACERONE 200 MG PO (08:11)
[2025-06-16] MEDS: LIDOCAINE 4% PATCH 1 PATCH TOPICAL (08:15)
--- NOTE | 2025-06-16 10:10 | PTCARENOTE ---
pt for discharge today, v wire removed by cardiology PA. Pt assisted in showering & dressing, tolerated well.
--- NOTE | 2025-06-16 10:25 | W.DCSUMMARY ---
Discharge Summary
Discharge Data
Date of Admission: 06/12/25
Date of Discharge: 06/16/25
-
Pending Results: No
Hospital Course
Primary care physician:
Dr. Alvarez
Outpatient picture enlarger:
Dr. Hansen
Inpatient consultants:
[facility]
Procedures:
1. s/p Brennen sternotomy to the right at the third intercostal space; Surgical aortic valve replacement [27 mm Gardner Inspira's Resilia biological valve] by Dr. Howe on 06/12/25
Admission Diagnosis:
- Severe symptomatic Aortic valve stenosis
- Hypertension
- Hyperlipidemia
- BPH
- Single-vessel LAD coronary artery disease, asymptomatic
Discharge Diagnoses:
- Severe symptomatic Aortic valve stenosis s/p aortic valve replacement via Brennen sternotomy
- Hypertension
- Hyperlipidemia
- BPH
- Single-vessel LAD coronary artery disease, asymptomatic
- Acute postop blood loss anemia - no transfusions
- Acute postop thrombocytopenia
- Acute postop atelectasis/ pulmonary insufficiency
- Acute postop hypovolemia with subsequent hypervolemia
- Suspected acute postop pericarditis/rub- started Colchicine
HPI: 74-year-old male with a past medical history of nonrheumatic aortic valve stenosis who presents for elective surgical aortic valve replacement. Patient known to the CT surgery service with last visit on 05/27/[address] Howe. He has known
mid LAD disease with an IFR of 0.88. Multidisciplinary team discussion held and there was discussion between TAVR versus SAVR. He does have significant calcium burden that infiltrates up into the measures and into the valve annulus which places
him at slightly higher risk for complications including aortic rupture and hemorrhage. Discussion held and due to this calcium distribution, surgery would actually be more controlled and safer compared to TAVR. Patient agreed to this procedure,
and was scheduled for hemisternotomy with surgical aortic valve replacement.
Hospital course: He was admitted via same day admissions on 06/12, taken to the OR and underwent AVR via hemisternotomy by Dr. Howe. He tolerated the procedure well and was transferred to the ICU on Levophed and in stable condition. He was able to
be extubated later that evening and his Levophed weaned off, briefly requirinig NTG for HTN. He had an uneventful postoperative course and his lines and drains were removed in the routine fashion. CXR post chest tube removal revealed no
pneumothorax or significant pleural effusions. He maintained sinus rhythm throughout his stay. His temporary pacing wires were cut and it was felt that he could safely be discharged to home on POD#4. He was given explicit instructions on diet,
wound care, and physical activity. He will follow up with CT surgery and Cardiology as scheduled and his PCP as needed.
Discharge Plan
-
Patient Disposition: Home (Routine Discharge)
Discharge Diagnosis/Procedures: Aortic valve replacement # 27mm Inspiris tissue valve
Diet: No restrictions
Activity: No strenuous activity
Driving Restrictions: Not until seen by your Dr
Bathing Restrictions: OK to Shower
Other Services: Cardiac Rehab
Activity Restrictions/Additional Instructions:
Please call [facility] to get scheduled. P: [phone]
Referrals:
Darci Armstrong LINK TRAINER [Other] - 07/22/25 1:[address] Transitional Care Nurse [Outside] - in one to two days
Referral Note:
The Cardiothoracic Transitional Care Nurse will call you to set up a visit in 1-2 days.
Carlos Alvarez MD [Family Provider, Family Practice] - in four to six weeks
Referral Note: Please make an appointment in four to six weeks.
Jono Howe MD [Active, Cardiac Surgery] - 07/15/25 2:00 pm
Prescriptions:
New
acetaminophen 325 mg Tablet
650 mg PO Q4HPRN PRN (Reason: mild pain,headache,temp >101F ) Qty: 0 0RF
colchicine 0.6 mg Tablet
0.3 mg PO DAILY 30 Days Qty: 15 0RF
metoprolol succinate 100 mg Tablet Extended Release 24 Hr
100 mg PO DAILY Qty: 30 2RF
gabapentin 100 mg Capsule
100 mg PO TID 7 Days Qty: 21 0RF
furosemide 40 mg Tablet
40 mg PO DAILY 5 Days Qty: 5 0RF
potassium chloride [Klor-Con M20] 20 mEq Tablet,Er Particles/Crystals
20 meq PO DAILY 5 Days Qty: 5 0RF
acetaminophen 325 mg capsule
650 mg PO Q6H MDD 4000 mg PRN (Reason: fever or pain) Qty: 100 0RF
Continued
clotrimazole 10 mg Stan
10 mg MUCOUS MEMBRANE MOWEFR
ascorbic acid (vitamin C) [Vitamin C] 1,000 mg Tablet
1,000 mg PO DAILY
cyanocobalamin (vitamin B-12) [Vitamin B-12] 1,000 mcg Tablet
1,000 mcg PO DAILY
clobetasol 0.05 % Gel
1 applic TOPICAL MOWEFR
tamsulosin 0.4 mg Capsule
0.4 mg PO DAILY
aspirin 81 mg Tablet,Chewable
81 mg PO DAILY
cholecalciferol (vitamin D3) [Vitamin D3] 25 mcg (1,000 unit) Tablet
25 mcg PO DAILY
multivitamin Tablet
1 tab PO DAILY
zinc acetate 50 mg (zinc) Capsule
50 mg PO HS
omega 6-ell-lwj-fish oil [Fish Oil] 1,200 (144-216) mg Capsule
1 cap PO BID
atorvastatin 40 mg tablet
40 mg PO QPM
Discontinued
echinacea 400 mg Capsule
400 mg PO HS
turmeric
500 mg PO HS
amlodipine 5 mg tablet
5 mg PO HS
Discharge Orders:
Discharge Patient (As Directed); Ordered 06/16/25
Ordered By: Cl Bajwa
Care Plan Goals
Care Plan Goals:
Problem: Readiness for enhanced knowledge related to diagnosis and treatment plan
Goal: Understand your diagnosis and treatment plan needs, including medications if applicable.
Instructions: Know your diagnosis, underlying causes and treatment plan options, including medications if applicable. Consult with your health care team to learn about your diagnosis and treatment plan, including medications if applicable.
Discharge Date and Time
Discharge Date/Time: 06/16/25 13:32
Print Language: FRISIAN
[2025-06-16 11:31] VITALS: BP 113/66
== END 2025-06-16 13:32 | disposition home or self-care (01) | DRG 219 ==
LOC: IVU 04:59
PROVIDERS: Clinical Nurse Specialist Acute Care; Physician Assistant Medical; ADMITTING PHYSICIAN Thoracic Surgery (Cardiothoracic Vascular Surgery); CONSULT PHYSICIAN Internal Medicine Critical Care Medicine; FAMILY PHYSICIAN Family Medicine
PROC: B24BZZ4 Ultrasonography of Heart with Aorta, Transesophageal (ICD-10-PCS; 2025-06-12)
PROC: 5A1221Z Performance of Cardiac Output, Continuous (ICD-10-PCS; 2025-06-12)
PROC: 02RF08Z Replacement of Aortic Valve with Zooplastic Tissue, Open Approach (ICD-10-PCS; 2025-06-12)
DX: I35.0 Nonrheumatic aortic (valve) stenosis (principal); J95.1 Acute pulmonary insufficiency following thoracic surgery; D62 Acute posthemorrhagic anemia; J98.11 Atelectasis; I30.9 Acute pericarditis, unspecified; I10 Essential (primary) hypertension; E78.00 Pure hypercholesterolemia, unspecified; N40.0 Benign prostatic hyperplasia without lower urinary tract symptoms; I25.10 Atherosclerotic heart disease of native coronary artery without angina pectoris; E66.9 Obesity, unspecified; L43.9 Lichen planus, unspecified; D69.59 Other secondary thrombocytopenia; E86.1 Hypovolemia; E87.70 Fluid overload, unspecified; Z82.49 Family history of ischemic heart disease and other diseases of the circulatory system; Z79.82 Long term (current) use of aspirin; Z68.34 Body mass index [BMI] 34.0-34.9, adult
CPT/HCPCS: 36415; 71045; 71046; 80048; 80053; 81003; 81015; 82248; 82330; 82565; 82805; 82810; 82947; 82962; 83036; 83735; 84132; 84302; 84520; 85014; 85018; 85025; 85027; 85049; 85610; 85730; 86850; 86900; 86901; 86920; 87070; 88305; 88311; 93005; 93312; 93320; 93325; 93880; 94002; J2916